=== PATIENT | male | born 1950 | race Two or more races ===

== ENCOUNTER 2017-01-01 17:04 | Emergency (ER) | payer MEDICAID ==
[~2017-01-01] VITALS: Ht 165.1 cm; Wt 72.6 kg
[2017-01-01 17:43] LABS: Urine Bilirubin Negative (Negative); Urine Blood TRACE /uL (Negative); Urine Color Yellow (Yellow); Urine Glucose Normal (Normal); Urine Ketone Negative (Negative); Urine Nitrite Negative (Negative); Urine RBC 12 /hpf (0 - 3)
[2017-01-01 17:50] LABS: Basophils # (auto) 0 uL; Basophils % (auto) 0.3 % (0.0-2.0); DEFINITIVE VIEW TRANSMISSION; Eosinophils # (auto) 0.1 uL; Hematocrit 46.2 % (41.0-53.0); Hemoglobin 14.9 g/dL (13.5-17.5); Lymphocytes # (auto) 1.8 uL; Lymphocytes % (auto) 13.8 % (10.0-50.0); Mean Corpuscular Hemoglobin 24.3 pg (28.0-32.0); Mean Corpuscular Hgb Conc. 32.2 g/dL (32.0-36.0); Mean Corpuscular Volume 75.4 fL (80.0-100.0); Monocytes # (auto) 0.7 uL; Monocytes % (auto) 5.5 % (0.0-12.0); Neutrophils # (auto) 10.6 uL; Neutrophils % (auto) 79.4 % (37.0-80.0); Platelet Count (auto) 222 10^3/uL (140-450); SUSPECT VIEW TRANSMISSION; White Blood Cell 13.4 10^3/uL (4.4-10.8)
[2017-01-01 17:58] LABS: Red Cell Distribution Width 25.9 % (11.6-16.0)
[2017-01-01 17:59] LABS: Hypochromia Moderate; Microcytosis Moderate
[2017-01-01 18:00] LABS: Anisocytosis Moderate; Platelet Estimate Adequate
[2017-01-01 18:16] LABS: Albumin 4.3 g/dL (3.4-5.0); Alkaline Phosphatase 75 U/L (45-117); Anion Gap 12 (5-15); Aspartate Aminotransferase 23 U/L (15-37); BUN/Creatinine Ratio 7.7; Bilirubin, Total 2.5 mg/dL (0.2-1.0); Blood Urea Nitrogen 7 mg/dL (7-18); Calcium 8.8 mg/dL (8.5-10.1); Carbon Dioxide 32 mmol/L (21-32); Chloride 94 mmol/L (98-107); GFR African American 107 mL/min; GFR Non-African American 88 mL/min; Glucose 121 mg/dL (74-106); Magnesium 2.5 mg/dL (1.6-2.6); Potassium 3.7 mmol/L (3.5-5.1); Sodium 138 mmol/L (136-145)
[2017-01-01] MEDS ORDERED: SODIUM CHLORIDE 0.9% 2,000 ML IV ONE (19:45)
[2017-01-01] MEDS ORDERED: ONDANSETRON HCL 4 MG/2 ML VIAL IV ONE (19:45)
[2017-01-01 21:18] VITALS: BP 139/81
== END 2017-01-01 21:24 | disposition home or self-care (01) ==
LOC: ER 17:04
DX: T62.8X1A Toxic effect of other specified noxious substances eaten as food, accidental (unintentional), initial encounter (principal); N39.0 Urinary tract infection, site not specified; I10 Essential (primary) hypertension; Y92.89 Other specified places as the place of occurrence of the external cause
CPT/HCPCS: 36415; 80053; 81001; 83735; 84484; 85025; 93005; 96361; 96374; 99285; J2405; J7030

== ENCOUNTER 2018-07-29 08:49 | Emergency (ER) | payer MEDICAID ==
[~2018-07-29] VITALS: Ht 165.1 cm; Wt 79.4 kg
[2018-07-29 09:21] LABS: Urine Bacteria MANY /hpf (None Seen); Urine Blood 1+ /uL (Negative); Urine Mucus FEW (None Seen); Urine Specific Gravity 1.014 (1.001-1.035); Urine WBC 1263 /hpf (0 - 3); Urine WBC Clumps PRESENT /hpf (None Seen)
[2018-07-29 09:27] LABS: Basophils # (auto) 0 uL; Eosinophils # (auto) 0.1 uL; Lymphocytes # (auto) 1.1 uL
[2018-07-29 09:29] LABS: Basophils % (auto) 0.2 % (0.0-2.0); Eosinophils % (auto) 0.6 % (0.0-7.0); Hematocrit 34.6 % (41.0-53.0); Hemoglobin 11.5 g/dL (13.5-17.5); Lymphocytes % (auto) 12.6 % (10.0-50.0); Mean Corpuscular Hemoglobin 23.8 pg (28.0-32.0); Mean Corpuscular Hgb Conc. 33.3 g/dL (32.0-36.0); Mean Corpuscular Volume 71.4 fL (80.0-100.0); Monocytes % (auto) 11.3 % (0.0-12.0); Neutrophils # (auto) 6.6 uL; Neutrophils % (auto) 75.3 % (37.0-80.0); Nucleated Red Blood Cells % 0.1 %; Platelet Count (auto) 137 10^3/uL (140-450); Red Blood Cells 4.84 10^6/uL (4.5-5.90); White Blood Cell 8.7 10^3/uL (4.4-10.8)
[2018-07-29 09:32] LABS: Red Cell Distribution Width 23.7 % (11.8-14.3)
[2018-07-29 09:58] LABS: Albumin 3.4 g/dL (3.4-5.0); BUN/Creatinine Ratio 12.1; Potassium 3.5 mmol/L (3.5-5.1)
[2018-07-29 10:01] LABS: Bilirubin, Total 1.8 mg/dL (0.2-1.0); Total Protein 7.4 g/dL (6.4-8.2)
[2018-07-29] MEDS ORDERED: cefTRIAXone 1GM/50ML D5W 50 ML IV ONE (11:45)
[2018-07-29 12:28] VITALS: BP 128/68
== END 2018-07-29 12:20 | disposition home or self-care (01) ==
LOC: ER 08:53
DX: N39.0 Urinary tract infection, site not specified (principal); I10 Essential (primary) hypertension; Z87.442 Personal history of urinary calculi
CPT/HCPCS: 36415; 80053; 81001; 85025; 94761; 96365; 99283; J0696

== ENCOUNTER 2024-04-02 20:25 | Emergency (ER) | payer BC, OTHER ==
[~2024-04-02] VITALS: Ht 167.6 cm; Wt 82.7 kg
[2024-04-02 21:18] LABS: Basophils # (auto) 0 10 ^3/uL (0-0.2); Eosinophils # (auto) 0.3 10 ^3/uL (0-0.8); Hemoglobin 7.8 g/dL (13.5-17.5); Neutrophils # (auto) 3.3 10 ^3/uL (1.6-8.6); Nucleated Red Blood Cells % 0.2 %; White Blood Cell 6.2 10^3/uL (4.4-10.8)
[2024-04-02 21:20] LABS: Basophils % (auto) 0.3 % (0.0-2.0); Eosinophils % (auto) 4.6 % (0.0-7.0); Hematocrit 28.4 % (41.0-53.0); Lymphocytes # (auto) 2.1 10 ^3/uL (0.4-5.4); Mean Corpuscular Hemoglobin 13.9 pg (28.0-32.0); Mean Corpuscular Hgb Conc. 27.5 g/dL (32.0-36.0); Mean Corpuscular Volume 50.6 fL (80.0-100.0); Monocytes # (auto) 0.4 10 ^3/uL (0-1.3); Monocytes % (auto) 7.2 % (0.0-12.0); Neutrophils % (auto) 53.9 % (37.0-80.0); Red Blood Cells 5.62 10^6/uL (4.5-5.90); Red Cell Distribution Width 23.2 % (11.8-14.3)
[2024-04-02 21:42] LABS: Albumin 4.4 g/dL (3.2-4.8); Alkaline Phosphatase 65 U/L (46-116); Anion Gap 7 (5-15); Aspartate Aminotransferase < 8 U/L (13-40); BUN/Creatinine Ratio 15.2 (10.0-20.0); Bilirubin, Total 1.1 mg/dL (0.2-1.0); Blood Urea Nitrogen 12 mg/dL (9-23); Carbon Dioxide 26 mmol/L (20-30); Chloride 106 mmol/L (98-107); Glucose 102 mg/dL (74-106); Sodium 139 mmol/L (136-145); Total Protein 6.9 g/dL (5.7-8.2)
[2024-04-02 21:45] LABS: Alanine Aminotransferase < 9 U/L (7-40)
[2024-04-02] MEDS ORDERED: FUROSEMIDE 20 MG/2 ML VIAL IV ONE (22:30)
[2024-04-02 22:58] LABS: Anisocytosis Moderate; Hypochromia Marked; Ovalocytes MODERATE; Platelet Estimate Decreased
[2024-04-02 22:59] LABS: Tear Drop Cells FEW
[2024-04-02] MEDS ORDERED: FURO1TAB33 PO (23:18)
[2024-04-02] MEDS ORDERED: FUROSEMIDE 40 MG/4 ML VIAL IV ONE (23:30)
[2024-04-03] MEDS: FUROSEMIDE 20 MG TAB PO ONE
[2024-04-03 00:40] VITALS: BP 122/56; PULSE 70; RESP 16; TEMP 98.4; O2SAT 95
== END 2024-04-02 23:20 | disposition home or self-care (01) ==
LOC: ER 20:25
DX: D64.9 Anemia, unspecified (principal); R60.0 Localized edema; G89.29 Other chronic pain; M25.512 Pain in left shoulder; I10 Essential (primary) hypertension; Z87.442 Personal history of urinary calculi
CPT/HCPCS: 36415; 71045; 80053; 83880; 84484; 85025; 93005; 93970

== ENCOUNTER 2025-03-14 13:18 | Emergency (ER) | payer BC, MEDICAID ==
[~2025-03-14] VITALS: Ht 165.1 cm; Wt 82.0 kg
[~2025-03-14 13:18] MED LIST: FURO1TAB33 PO
--- NOTE | 2025-03-14 13:46 | ED.PDOC ---
GI ASSESSMENT HPI Comments This is a 74 year old male BIB grandson presenting to the ED with chief complaint of nausea/vomiting. Grandefe reports that the patient was having ore chronic pain last night due to residual effect from shingles, so he had taken a dose of Oxycodone (which is his 's), Advil, Tylenol, and Gabapentin. Mami relays that after this, the patient has since then been experiencing episode of nausea and vomiting. Patient denies any abdominal pain chest pain, SOB, dizziness, or hematemesis. Time Seen by MD: 13:41 Primary Care Provider: NONE Reviewed Notes: Nurses Notes, Medications, Allergies Allergies: Coded Allergies: NO KNOWN ALLERGIES (Unverified , 04/14/16) Home Meds Active Scripts Furosemide (Lasix) 20 Mg Tb, 1 TAB PO DAILY for 30 Days, #30 TAB 1 Refill Prov:AKIN PATEL MD 04/02/24 Information Source: Patient, Relative (GrandChild) Mode of Arrival: Wheelchair Timing: Hours Duration: Since onset Prehospital treatment: None Vomitus: Watery Stool: Normal Severity: Moderate Recent: None Recent Hx of: None Pain Location: None Modifying Factors: Nothing Associated sign and symptoms: Nausea, Vomiting Past Medical History PAST MEDICAL HISTORY: HTN, Kidney Stones Past Medical History (Other): Chronic left shoulder pain Surgical History: Hernia Repair Surgical History (Other): Abdominal tumor removal Family History Family History: Reviewed,noncontributory to illness Social History Smoker: Non-Smoker Alcohol: Denies ETOH Use Drugs: Denies Drug Use Lives In: Home Constitutional: denies: chills, diaphoresis, fatigue, fever, malaise, sweats, weakness, others EENTM: denies: blurred vision, double vision, ear bleeding, ear discharge, ear drainage, ear pain, ear ringing, eye pain, eye redness, hearing loss, mouth pain, mouth swelling, nasal discharge, nose bleeding, nose congestion, nose pain, photophobia, tearing, throat pain, throat swelling, voice changes, others Respiratory: denies: cough, hemoptysis, orthopnea, SOB at rest, shortness of breath, SOB with excertion, stridor, wheezing, others Cardiovascular: denies: chest pain, dizzy spells, diaphoresis, Dyspnea on exertion, edema, irregular heart beat, left arm pain, lightheadedness, pa lpitations, PND, syncope, others Gastrointestinal: reports: nausea, vomiting; denies: abdomen distended, abdominal pain, blood streaked bowels, constipated, diarrhea, dysphagia, difficulty swallowing, hematemesis, melena, poor appetite, poor fluid intake, rectal bleeding, rectal pain, others Genitourinary: denies: burning, dysuria, flank pain, frequency, hematuria, incontinence, penile discharge, penile sore, pain, testicle pain, testicle swelling, urgency, others Neurological: denies: dizziness, fainting, headache, left sided numbness, left sided weakness, numbness, paresthesia, pre-existing deficit, right sided numbness, right sided weakness, seizure, speech problems, tingling, tremors, weakness, others Musculoskeletal: denies: back pain, gout, joint pain, joint swelling, muscle pain, muscle stiffness, neck pain, others Integumetry: denies: bruises, change in color, change in hair/nails, dryness, laceration, lesions, lumps, rash, wounds, others Allergic/Immunocompromised: denies: Difficulty Healing, Frequent Infections, Hives, Itching, others Hematologic/Lymphatic: denies: anemia, blood clots, easy bleeding, easy bruising, swollen glands, others Endocrine: denies: excessive hunger, excessive sweating, excessive thirst, excessive urination, flushing, intolerance to cold, intolerance to heat, unex plained weight gain, unexplained weight loss, others Psychiatric: denies: anxiety, bipolar disorder, depression, hopeless, panic disorder, schizophrenia, sleepless, suicidal, others All Other Systems: Reviewed and Negative Physical Exam General Appearance: No Apparent Distress, Normal HEENT: Normal ENT Inspection, Pharynx Normal, TMs Normal Neck: Full Range of Motion, Non-Tender, Normal, Normal Inspection Respiratory: Chest Non-Tender, Lungs Clear, No Accessory Muscle Use, No Respiratory Distress, Normal Breath Sounds Cardiovascular: No Edema, No JVD, No Murmur, No Gallop, Normal Peripheral Puls es, Regular Rate/Rhythm Breast Exam: Deferred Gastrointestinal: No Organomegaly, Non Tender, No Pulsatile Mass, Normal Bowel Sounds, Soft Genitalia: Deferred Pelvic: Deferred Rectal: Deferred Extremities: No calf tenderness, Normal capillary refill, Normal inspection, Normal range of motion, Non-tender, No pedal edema Musculoskeletal : Apperance: Normal Neurologic: Alert, manager oncology II-XII nml as Tested, No Motor Deficits, Normal Affect, Normal Mood, No Sensory Deficits, Other (Resting tremors) Cerebellar Function: Normal Reflexes: Normal Skin: Dry, Normal Color, Warm Lymphatic: No Adenopathy Was a procedure done? Was a procedure done?: No GI differential Dx Differential Diagnosis: Appendicitis, Aortic dissection, Bowel Obstruction, Cholangitis, Cholecystitis, Constipation, Esophagitis, Gastritis/PUD, Gastroen teritis, Hernia, Hepatitis, Pancreatitis, UTI, Urolithiasis, Electrolyte Imbalance, Food Poisoning, Bacterial, Parasitic, Viral, Impaction, Mass, Stress Ulcer, Kidney Stone X-Ray, Labs, Meds, VS Vital Signs Date Time Temp Pulse Resp B/P (MAP) Pulse Ox O2 Delivery O2 Flow Rate FiO2 03/14/25 14:40 86 16 96 Room Air* 0 21 03/14/25 14:39 97.8 86 16 160/67 (98) 96 97.8 03/14/25 14:15 98.0 83 17 144/86 (105) 97 98.0 Lab Test 03/14/25 15:24 03/14/25 14:40 03/14/25 13:50 Range/Units Urine Color Colorless Yellow Urine Clarity Clear Clear Urine pH 7.0 5.0-9.0 Urine Specific [place] 1.007 1.001-1.035 Urine Protein Negative Negative Urine Ketones 1+ H Negative Urine Blood Negative Negative /uL Urine Nitrite Negative Negative Urine Bilirubin Negative Negative Urine Urobilinogen Normal Negative mg/dL Urine Leukocyte Esterase Negative Negative /uL Urine RBC 1 0 - 3 /hpf Urine Microscopic WBC 2 0-3 /HPF Urine Squamous Epithelial Cells None seen <5 /hpf Urine Bacteria None seen None Seen /hpf Urine Glucose Normal Normal mg/dL Troponin I High Sensitivity 4 4 </=54 ng/L White Blood Count 8.1 4.4-10.8 10^3/uL Red Blood Count 6.62 H 4.5-5.90 10^6/uL Hemoglobin 9.7 L 13.5-17.5 g/dL Hematocrit 34.4 L 41.0-53.0 % Mean Corpuscular Volume 51.9 L 80.0-100.0 fL Mean Corpuscular Hemoglobin 14.7 L 28.0-32.0 pg Mean Corpuscular Hemoglobin Concent 28.3 L 32.0-36.0 g/dL Red Cell Distribution Width 23.1 H 11.8-14.3 % Platelet Count 113 L 140-450 10^3/uL Mean Platelet Volume 10.7 6.9-10.8 fL Neutrophils (%) (Auto) 83.0 H 37.0-80.0 % Lymphocytes (%) (Auto) 11.8 10.0-50.0 % Monocytes (%) (Auto) 3.5 0.0-12.0 % Eosinophils (%) (Auto) 0.8 0.0-7.0 % Basophils (%) (Auto) 0.9 0.0-2.0 % Neutrophils # (Auto) 6.7 1.6-8.6 10 ^3/uL Lymphocytes # (Auto) 0.9 0.4-5.4 10 ^3/uL Monocytes # (Auto) 0.3 0-1.3 10 ^3/uL Eosinophils # (Auto) 0.1 0-0.8 10 ^3/uL Basophils # (Auto) 0.1 0-0.2 10 ^3/uL Nucleated Red Blood Cells 0.2 % Platelet Estimate Adequate Hypochromasia (manual) Moderate Anisocytosis (manual) Slight Microcytosis Moderate Ovalocytes Few Sodium Level 137 136-145 mmol/L Potassium Level 3.9 3.5-5.1 mmol/L Chloride Level 102 98-107 mmol/L Carbon Dioxide Level 23 20-31 mmol/L Anion Gap 12 5-15 Blood Urea Nitrogen 12 9-23 mg/dL Creatinine 0.86 0.700-1.30 mg/dL Glomerular Filtration Rate Calc 90 >90 mL/min BUN/Creatinine Ratio 14.0 10.0-20.0 Serum Glucose 120 H 74-106 mg/dL Calcium Level 9.5 8.7-10.4 mg/dL Total Bilirubin 1.7 H 0.2-1.0 mg/dL Aspartate Amino Transferase (AST) 34 13-40 U/L Alanine Aminotransferase (ALT) 10 7-40 U/L Alkaline Phosphatase 72 46-116 U/L Total Protein 7.5 5.7-8.2 g/dL Albumin 4.9 H 3.2-4.8 g/dL Lipase 38 12-53 U/L Current Medications Medications (Trade) Dose Ordered Sig/Tamir Route Start Time Stop Time Status Last Admin Ondansetron HCl (Zofran) 4 mg ONCE ONCE IV 03/14/25 13:45 03/14/25 13:46 DC 03/14/25 14:45 Sodium Chloride 1,000 ml @ 200 mls/hr Q5H ONCE IV 03/14/25 13:45 03/14/25 18:44 03/14/25 14:44 CT Abd/Pel: FINDINGS: Motion artifact limits evaluation. Lung bases: Atelectasis in the lung bases. Respiratory motion artifact limits evaluation. Small pericardial effusion partially visualized. Large hiatal hernia Liver: Hepatic cysts, with the largest in the right hepatic lobe measuring up to 4.4 cm. Biliary: Numerous calcified gallstones in the gallbladder. Mild gallbladder distention. No biliary ductal dilatation. Spleen: Spleen is enlarged, measuring up to 16.1 cm in greatest dimension. Pancreas: Grossly unremarkable in its noncontrast enhanced appearance. Adrenal glands: Unremarkable. No mass. Kidneys: No hydronephrosis. No renal or ureteral calculi. Aorta/Vascular: Dense atherosclerotic calcification. No abdominal aortic aneurysm. Retroperitoneum: No mass or lymphadenopathy. Bowel/mesentery: No small bowel obstruction. No free air or free fluid. Appendix is visualized and appears unremarkable. Pelvic organs: Markedly enlarged prostate with impression on the bladder base. Bladder: [id number] circumferential thickening of the bladder wall. Abdominal wall: No mass or hernia. Bones: No acute fracture or suspicious intraosseous lesion. IMPRESSION: 1. Motion limited study. 2. Large hiatal hernia. 3. Distended gallbladder with cholelithiasis. 4. Splenomegaly. 5. Prostatomegaly. 6. Circumferential thickening of the bladder wall is nonspecific. Correlate clinically to exclude cystitis. 7. Small pericardial effusion. 8. Additional findings as described above. Chest XR: FINDINGS: Lines and Tubes: None Lungs: Clear Pleura: Blunting both costophrenic angle compatible small minimal pleural effusions No pneumothorax. Cardiomediastinal contours: Large probable hiatal hernia Bones: Unremarkable IMPRESSION: 1. Probable large hiatal hernia Small bilateral pleural effusions Heart size upper limits of normal Images Reviewed?: Images reviewed and evaluated by me Time of 1ST Reevaluation: 14:41 Reevaluation 1ST: Unchanged Time of 2ND Reevaluation: 15:35 Reevaluation 2ND: Improved Consultation: Other (Dr Lewis) Patient Education/Counseling: Diagnosis, Treatment, Prognosis, Need For Follow Up Family Education/Counseling: Diagnosis, Treatment Comments pt has cholelithiasis and the back pain, that he ascribed to shingles, may be due to biliary colic. his LFTs are normal., he has other nonspecific findings, including HH, which i feel are incidental findings. he will be admitted for cholelithiasis Additional Information Reviewed patient's previous visit(s): 04/02/24 for leg swelling The following tests were ordered, and results were reviewed by me: Additional information was gathered from interviewing the following independent historian: Mami I reviewed and agreed with the following test results read by other provider: I discussed treatments and results with medical personnel and: Patient and grandson Comprehensive systems review obtained and negative except for what is stated in the HPI. SEPSIS Sepsis Screen Physician Orders Ct Ab Pel Wo Con-No Oral Or Iv (03/14/25 13:40) Electrocardigram (03/14/25 13:40) Chest Portable (03/14/25 13:40) Electrocardigram (03/14/25 14:40) Electrocardigram (03/14/25 16:40) Troponin-I Hs (03/14/25 16:40) Sodium Chloride 0.9% (03/14/25 13:45) Vital Signs Date Time Temp Pulse Resp B/P (MAP) Pulse Ox O2 Delivery O2 Flow Rate FiO2 03/14/25 14:40 86 16 96 Room Air* 0 21 03/14/25 14:39 97.8 86 16 160/67 (98) 96 97.8 03/14/25 14:15 98.0 83 17 144/86 (105) 97 98.0 Laboratory Tests Test 03/14/25 13:50 White Blood Count 8.1 10^3/uL (4.4-10.8) Medications Medications Dose Ordered Sig/Tamir Route Start Time Stop Time Status Last Admin Dose Admin Ondansetron HCl 4 mg ONCE ONCE IV 03/14/25 13:45 03/14/25 13:46 DC 03/14/25 14:45 Sodium Chloride 1,000 ml @ 200 mls/hr Q5H ONCE IV 03/14/25 13:45 03/14/25 18:44 03/14/25 14:44 Departure 1 Departure Time of Disposition: 15:37 Impression: Primary Impression: Cholelithiasis Qualified Codes: K80.20 - Calculus of gallbladder without cholecystitis without obstruction Additional Impressions: Hiatal hernia Biliary colic Disposition: ADMITTED INPATIENT Admit to: Med Surg Condition: Stable Discharged With: Self, Relative Critical Care Note Critical Care Time?: Yes (55 min-critical care time only) Critical care comment: Due to concerns for patients condition deteriorating, the care required my highest level of attention and readiness to intervene. I assessed the patient, reviewed the medical records, ordered the appropriate tests and treatments, then reassessed for results and responsiveness. I communicated with medical personnel and consultants and formulated a plan of care. Total critical care time excludes any procedures Stability Stability form required: No Heart Score Heart Score: Heart Score Response (Comments) Value History N/A 0 EKG N/A 0 Age N/A 0 Risk Factors N/A 0 Troponin N/A 0 Total 0 I personally scribed for LAUREL DANIELS MD ([email or web address]) on 03/14/25 at 13:46. Electronically submitted by Himanshu Hi ([email or web address]). I personally scribed for LAUREL DANIELS MD ([email or web address]) on 03/14/25 at 14:46. Electronically submitted by Himanshu Hi ([email or web address]). I personally scribed for LAUREL DANIELS MD ([email or web address]) on 03/14/25 at 14:46. Electronically submitted by Himanshu Hi ([email or web address]). LAUREL DANIELS MD Mar 14, 2025 13:46
[2025-03-14 14:11] LABS: Hematocrit 34.4 % (41.0-53.0); Hemoglobin 9.7 g/dL (13.5-17.5)
[2025-03-14 14:13] LABS: Mean Corpuscular Hemoglobin 14.7 pg (28.0-32.0); Mean Corpuscular Volume 51.9 fL (80.0-100.0); Nucleated Red Blood Cells % 0.2 %
--- NOTE | 2025-03-14 14:25 | DVH ---
CLINICAL INFORMATION: Nausea and vomiting. TECHNIQUE: Axial CT images of the abdomen and pelvis were obtained without IV contrast. Coronal and s agittal reformatted images were obtained, reviewed, and stored. Evaluation of the parenchymal organs is limited without IV contrast. Evaluation of the bowel and mesentery is limited without oral contras t. All CT scans at this medical facility are performed using dose modulation techniques as appropriat e to a performed exam including the following: Automated exposure control was utilized; adjustment of the MA and/or KV according to patient size; and use of iterative reconstruction technique. CTDIvol = 15.24 mGy DLP = 735.53 mGy-cm COMPARISON: None FINDINGS: Motion artifact limits evaluation. Lung bases: Atelectasis in the lung bases. Respiratory motion artifact limits evaluation. Small peric ardial effusion partially visualized. Large hiatal hernia Liver: Hepatic cysts, with the largest in the right hepatic lobe measuring up to 4.4 cm. Biliary: Numerous calcified gallstones in the gallbladder. Mild gallbladder distention. No biliary d uctal dilatation. Spleen: Spleen is enlarged, measuring up to 16.1 cm in greatest dimension. Pancreas: Grossly unremarkable in its noncontrast enhanced appearance. Adrenal glands: Unremarkable. No mass. Kidneys: No hydronephrosis. No renal or ureteral calculi. Aorta/Vascular: Dense atherosclerotic calcification. No abdominal aortic aneurysm. Retroperitoneum: No mass or lymphadenopathy. Bowel/mesentery: No small bowel obstruction. No free air or free fluid. Appendix is visualized and ap pears unremarkable. Pelvic organs: Markedly enlarged prostate with impression on the bladder base. Bladder: [id number] circumferential thickening of the bladder wall. Abdominal wall: No mass or hernia. Bones: No acute fracture or suspicious intraosseous lesion. IMPRESSION: 1. Motion limited study. 2. Large hiatal hernia. 3. Distended gallbladder with cholelithiasis. 4. Splenomegaly. 5. Prostatomegaly. 6. Circumferential thickening of the bladder wall is nonspecific. Correlate clinically to exclude cy stitis. 7. Small pericardial effusion. 8. Additional findings as described above.
[2025-03-14 14:27] LABS: Alanine Aminotransferase 10 U/L (7-40); Alkaline Phosphatase 72 U/L (46-116); Anion Gap 12 (5-15); BUN/Creatinine Ratio 14.0 (10.0-20.0); Blood Urea Nitrogen 12 mg/dL (9-23); Calcium 9.5 mg/dL (8.7-10.4); Carbon Dioxide 23 mmol/L (20-31); Chloride 102 mmol/L (98-107); Potassium 3.9 mmol/L (3.5-5.1); Sodium 137 mmol/L (136-145); Total Protein 7.5 g/dL (5.7-8.2)
[2025-03-14 14:29] LABS: Albumin 4.9 g/dL (3.2-4.8); Bilirubin, Total 1.7 mg/dL (0.2-1.0); Glucose 120 mg/dL (74-106)
--- NOTE | 2025-03-14 14:39 | DVH ---
CHEST RADIOGRAPH Indication: NAUSEA VOMITING Technique: Single frontal view of the chest was obtained COMPARISON: XY CHEST PORTABLE on DOS: 04/02/24 FINDINGS: Lines and Tubes: None Lungs: Clear Pleura: Blunting both costophrenic angle compatible small minimal pleural effusions No pneumothorax. Cardiomediastinal contours: Large probable hiatal hernia Bones: Unremarkable IMPRESSION: 1. Probable large hiatal hernia Small bilateral pleural effusions Heart size upper limits of normal
[2025-03-14 14:40] VITALS: PULSE 86; RESP 16; O2SAT 96
[2025-03-14 14:40] LABS: Anisocytosis Slight; Lipase 38 U/L (12-53); Ovalocytes FEW
[2025-03-14] MEDS: SODIUM CHLORIDE 0.9% 1,000 ML IV ONE (14:44)
[2025-03-14] MEDS: ONDANSETRON HCL 4 MG/2 ML VIAL IV ONE ×2 (14:45→16:13)
[2025-03-14 15:42] LABS: Urine Protein, UAD Negative (Negative)
[2025-03-14] MEDS ORDERED: ZOFR4T PO (15:57)
[2025-03-14] MEDS ORDERED: AUG875T PO (16:02)
[2025-03-14] MEDS: fentaNYL CITRATE 100 MCG/2 ML VL IV ONE (16:13)
[2025-03-14 16:18] VITALS: BP 113/76; PULSE 83; RESP 16; TEMP 97.6; O2SAT 96
--- NOTE | 2025-03-14 16:39 | DVHDS2 ---
New Physician D'charge PN Admitting Diagnosis Admitting Diagnosis nausea Discharge Diagnosis cholelithiasis Operations or Procedures none Reason(s) For Hospitalization Surgery Hospital Course 74 M who comes to ER c/o nausea. He is accompanied by the son. He states he has had on and off nausea since yesterday. On ER work up he had a nml WBC of 8k and chemistry panel was nml with nml LFTs. His cardiac markers were all negative. He has a CT abdomen done and it revealed cholelithiasis but no evidence of ch olecystitis. He was given IV hydration and antiemetics. Hemodynamically his BP was nml, HR was in the 70s, he was afebrile at 98F and respirations were even and unlabored. I discussed the findings with the son and patient regarding the gallstones and likely his nausea being attributable to that. I recommended low fat diet and prescribed PO antiemetics zofran for home PRN. They would like to try conservative management at this time however given he does have gallstones and if his symptoms persist or worsen in the future he may need to have cholecystectomy at that time but there was no evidence of cholecystitis on CT imaging during this ER visit. He will be discharged home and [facility] to arrange outpt PCP and general surgery follow up. Scripts sent to the patients pharmacy on file and they have been instructed to return to ER or call 911 should his symptoms worsen. Treatment Plan Discharge Condition of Discharge Good Disposition Home Discharge Instructions Diet: Cardiac 2g Na,low cholest Activity: No Restrictions, As Tolerated Medications: see med sheet Follow Up Care Follow Up/Referral: pcp gen surgery Discharge Statement: "Patient was advised to return to the ER or call 911 if any headaches, dizziness, shortness of breath, chest pain, abdominal pain, bleeding, fevers, or worsening of medical condition. Patient was counseled about treatment plan, medications, possible side effects, patientverbalized understanding. All questions were answered to the best of my ability. This discharge took greater then 30 minutes in planning, reviewing documen tation, counseling the patient, and discussing with other team members." BRENDA CHAVEZ MD Mar 14, 2025 16:39
== END 2025-03-14 16:24 | disposition home or self-care (01) ==
LOC: ER 13:18
DX: K80.20 Calculus of gallbladder without cholecystitis without obstruction (principal); K44.9 Diaphragmatic hernia without obstruction or gangrene; K80.50 Calculus of bile duct without cholangitis or cholecystitis without obstruction; I10 Essential (primary) hypertension; G89.29 Other chronic pain; M25.512 Pain in left shoulder; Z79.899 Other long term (current) drug therapy; Z98.890 Other specified postprocedural states
CPT/HCPCS: 36415; 71045; 74176; 80053; 81001; 83690; 84484; 85025; 96361; 96374; 99285; J2405; J7030

== ENCOUNTER 2025-03-16 11:05 | Inpatient (IN) | payer BC, MEDICAID ==
[~2025-03-16] VITALS: Ht 165.1 cm; Wt 79.3 kg
[~2025-03-16 11:05] MED LIST changes: +AUG875T PO; +ZOFR4T PO
--- NOTE | 2025-03-16 11:47 | ED.PDOC ---
History of Present Illness HPI Comments 74 y.o male presents to the ED for a chief complaint of palpitations associated with nausea that started 3 days ago. Patient reports inability to vomit causing discomfort to sleep. Patient reports being seen at the ED here 2 days ago for abdominal pain, had a CT scan done showing gallbladder issues and was discharged home but since has not fully recovered. Patient denies any chest pain, fever, chills, leg swelling,, diarrhea. Chief Complaint: Abdominal Pain Time Seen by MD: 11:30 Primary Care Provider: UNKNOWN Reviewed Notes: Nurses Notes, Medications, Allergies Allergies: Coded Allergies: NO KNOWN ALLERGIES (Unverified , 04/14/16) Home Meds Active Scripts Amoxicillin & Pot Clavulanate (AUGMENTIN TABLET) 875 Mg Tb, 875 MG PO BID for 7 Days, #14 TAB Prov:BRENDA CHAVEZ MD 03/14/25 Ondansetron Odt 4MG Tab (ZOFRAN PO) 4 Mg Tb, 4 MG PO TIDPRN PRN, #40 TAB ODT TAB-DISSOLVE IN MOUTH, THEN SWALLOW Prov:BRENDA CHAVEZ MD 03/14/25 Furosemide (Lasix) 20 Mg Tb, 1 TAB PO DAILY for 30 Days, #30 TAB 1 Refill Prov:AKIN PATEL MD 04/02/24 Information Source: Patient Mode of Arrival: Ambulatory Severity: Moderate Timing: Days (3) Duration: Since onset Prehospital treatment: None Associated signs and symptoms Palpitations and abdominal pain Past Medical History PAST MEDICAL HISTORY: HTN, Kidney Stones Surgical History: Hernia Repair Family History Family History: Reviewed,noncontributory to illness Social History Smoker: Non-Smoker Alcohol: Denies ETOH Use Drugs: Denies Drug Use Lives In: Home Constitutional: denies: chills, diaphoresis, fatigue, fever, malaise, sweats, weakness, others EENTM: denies: blurred vision, double vision, ear bleeding, ear discharge, ear drainage, ear pain, ear ringing, eye pain, eye redness, hearing loss, mouth pain, mouth swelling, nasal discharge, nose bleeding, nose congestion, nose pain, photophobia, tearing, throat pain, throat swelling, voice changes, others Respiratory: denies: cough, hemoptysis, orthopnea, SOB at rest, shortness of breath, SOB with excertion, stridor, wheezing, others Cardiovascular: reports: palpitations; denies: chest pain, dizzy spells, diaphoresis, Dyspnea on exertion, edema, irregular heart beat, left arm pain, lightheadedness, PND, syncope, others Gastrointestinal: reports: nausea; denies: abdomen distended, abdominal pain, blood streaked bowels, constipated, diarrhea, dysphagia, difficulty swallowing, hematemesis, melena, poor appetite, poor fluid intake, rectal bleeding, rectal pain, vomiting, others Genitourinary: denies: burning, dysuria, flank pain, frequency, hematuria, incontinence, penile discharge, penile sore, pain, testicle pain, testicle swelling, urgency, others Neurological: denies: dizziness, fainting, headache, left sided numbness, left sided weakness, numbness, paresthesia, pre-existing deficit, right sided numbness, right sided weakness, seizure, speech problems, tingling, tremors, weakness, others Musculoskeletal: denies: back pain, gout, joint pain, joint swelling, muscle pain, muscle stiffness, neck pain, others Integumetry: denies: bruises, change in color, change in hair/nails, dryness, laceration, lesions, lumps, rash, wounds, others Allergic/Immunocompromised: denies: Difficulty Healing, Frequent Infections, Hives, Itching, others Hematologic/Lymphatic: denies: anemia, blood clots, easy bleeding, easy bruising, swollen glands, others Endocrine: denies: excessive hunger, excessive sweating, excessive thirst, excessive urination, flushing, intolerance to cold, intolerance to heat, unexplained weight gain, unexplained weight loss, others Psychiatric: denies: anxiety, bipolar disorder, depression, hopeless, panic disorder, schizophrenia, sleepless, suicidal, others All Other Systems: Reviewed and Negative Physical Exam General Appearance: Moderate Distress HEENT: Normal ENT Inspection, Pharynx Normal, TMs Normal Neck: Full Range of Motion, Non-Tender, Normal, Normal Inspection Respiratory: Chest Non-Tender, Lungs Clear, No Accessory Muscle Use, No Respiratory Distress, Normal Breath Sounds Cardiovascular: No Edema, No JVD, No Murmur, No Gallop, Normal Peripheral Pulses, Regular Rate/Rhythm Breast Exam: Deferred Gastrointestinal: Epigastric, No Organomegaly, No Pulsatile Mass, Normal Bowel Sounds, Soft, Tenderness Genitalia: Deferred Pelvic: Deferred Rectal: Deferred Extremities: No calf tenderness, Normal capillary refill, No pedal edema Musculoskeletal : Apperance: Normal Neurologic: Alert, semiconductor engineer II-XII nml as Tested, No Motor Deficits, Normal Affect, Normal Mood, No Sensory Deficits Cerebellar Function: Normal Reflexes: Normal Skin: Dry, Normal Color, Warm Lymphatic: No Adenopathy Was a procedure done? Was a procedure done?: No Differential Dx Considerations may include: Viral syndrome, Cholelithiasis, Dehydration, Anxiety, Electrolyte imbalance. X-Ray, Labs, Meds, VS Vital Signs Date Time Temp Pulse Resp B/P (MAP) Pulse Ox O2 Delivery O2 Flow Rate FiO2 03/16/25 11:27 98.1 78 21 143/83 (103) 93 98.1 Lab Test 03/16/25 11:49 Range/Units White Blood Count 8.1 4.4-10.8 10^3/uL Red Blood Count 6.27 H 4.5-5.90 10^6/uL Hemoglobin 9.1 L 13.5-17.5 g/dL Hematocrit 32.3 L 41.0-53.0 % Mean Corpuscular Volume 51.5 L 80.0-100.0 fL Mean Corpuscular Hemoglobin 14.6 L 28.0-32.0 pg Mean Corpuscular Hemoglobin Concent 28.3 L 32.0-36.0 g/dL Red Cell Distribution Width 23.2 H 11.8-14.3 % Platelet Count 105 L 140-450 10^3/uL Mean Platelet Volume 9.9 6.9-10.8 fL Neutrophils (%) (Auto) 77.4 37.0-80.0 % Lymphocytes (%) (Auto) 15.9 10.0-50.0 % Monocytes (%) (Auto) 5.5 0.0-12.0 % Eosinophils (%) (Auto) 0.9 0.0-7.0 % Basophils (%) (Auto) 0.3 0.0-2.0 % Neutrophils # (Auto) 6.3 1.6-8.6 10 ^3/uL Lymphocytes # (Auto) 1.3 0.4-5.4 10 ^3/uL Monocytes # (Auto) 0.4 0-1.3 10 ^3/uL Eosinophils # (Auto) 0.1 0-0.8 10 ^3/uL Basophils # (Auto) 0 0-0.2 10 ^3/uL Nucleated Red Blood Cells 0.3 % Platelet Estimate Decreased Hypochromasia (manual) Marked Poikilocytosis (manual) Slight Anisocytosis (manual) Slight Microcytosis Marked Ovalocytes Few Schistocytes Few Sodium Level 140 136-145 mmol/L Potassium Level 3.9 3.5-5.1 mmol/L Chloride Level 102 98-107 mmol/L Carbon Dioxide Level 30 20-31 mmol/L Anion Gap 8 5-15 Blood Urea Nitrogen 8 L 9-23 mg/dL Creatinine 0.94 0.700-1.30 mg/dL Glomerular Filtration Rate Calc 85 >90 mL/min BUN/Creatinine Ratio 8.5 L 10.0-20.0 Serum Glucose 106 74-106 mg/dL Calcium Level 8.4 L 8.7-10.4 mg/dL Total Bilirubin 1.4 H 0.2-1.0 mg/dL Aspartate Amino Transferase (AST) 58 H 13-40 U/L Alanine Aminotransferase (ALT) 13 7-40 U/L Alkaline Phosphatase 63 46-116 U/L Total Protein 6.9 5.7-8.2 g/dL Albumin 4.4 3.2-4.8 g/dL Lipase 28 12-53 U/L Current Medications Medications (Trade) Dose Ordered Sig/Tamir Route Start Time Stop Time Status Last Admin Ondansetron HCl (Zofran) 4 mg ONCE ONCE IV 03/16/25 11:45 03/16/25 11:46 DC 03/16/25 13:16 Pantoprazole Sodium (Protonix) 40 mg ONCE ONCE IV 03/16/25 11:45 03/16/25 11:46 DC 03/16/25 13:16 Procedure: US GALLBLADDER Impression: Limited evaluation due to patient's body habitus. Cholelithiasis without evidence of acute cholecystitis. Limited evaluation of the liver due to overlying bowel gas. 5.1 cm hepatic cysts. The patient is chemistry panel is within normal limits The patient was given Protonix 40 mg IV push The patient was also given Zofran 4 mg IV push for the nausea The CBC shows a hemoglobin of 9.1 and hematocrit of 32.3 indicating significant anemia The rest of the CBC is within normal limits At this time, the patient is being admitted to the hospitalist Images Reviewed?: Images reviewed and evaluated by me Time of 1ST Reevaluation: 11:47 Reevaluation 1ST: Unchanged Patient Education/Counseling: Diagnosis, Treatment, Prognosis Family Education/Counseling: No Family Present SEPSIS Sepsis Screen Date sepsis recognized/suspect: Mar 16, 2025 Time Sepsis recognized/suspect: 1106 Recent Procedure: No On Antibiotic Therapy: No Respiratory Rate >20: Yes Heart Rate >90: No Temp<36 C (96.8 F) or >38.3 C: No SBP <90 or MAP <65 mmHG: No New Acute Mental Status Change: No Is the patient on CPAP, BIPAP,: No Physician Orders Urinalysis (03/16/25 11:37) Heplock Iv (03/16/25 11:37) [place] Man (03/16/25 11:37) Blood Pressure (03/16/25 11:37) Pulse Oximetry (03/16/25 11:37) Gallbladder (03/16/25 11:39) Vital Signs Date Time Temp Pulse Resp B/P (MAP) Pulse Ox O2 Delivery O2 Flow Rate FiO2 03/16/25 11:27 98.1 78 21 143/83 (103) 93 98.1 Laboratory Tests Test 03/16/25 11:49 White Blood Count 8.1 10^3/uL (4.4-10.8) Medications Medications Dose Ordered Sig/Tamir Route Start Time Stop Time Status Last Admin Dose Admin Ondansetron HCl 4 mg ONCE ONCE IV 03/16/25 11:45 03/16/25 11:46 DC 03/16/25 13:16 Pantoprazole Sodium 40 mg ONCE ONCE IV 03/16/25 11:45 03/16/25 11:46 DC 03/16/25 13:16 Departure 1 Departure Time of Disposition: 14:07 Impression: Primary Impression: Intractable abdominal pain Additional Impression: Cholelithiasis Qualified Codes: K80.20 - Calculus of gallbladder without cholecystitis without obstruction Disposition: 09 ADMITTED INPATIENT Admit to: Med Surg Condition: Fair Critical Care Note Critical Care Time?: No Stability Stability form required: Yes Unstable for transfer: ED Physician Assesment (Clinical assesment) I personally scribed for JORGE A BERTRAND MD ([email or web address]) on 7/7/25 at 11:47. Electronically submitted by Emily Moe ([facility]). I personally scribed for JORGE A BERTRAND MD ([email or web address]) on 03/16/25 at 13:06. Electronically submitted by Emily Moe ([facility]). JORGE A BERTRAND MD Mar 16, 2025 11:47
[2025-03-16 12:18] LABS: Hemoglobin 9.1 g/dL (13.5-17.5)
[2025-03-16 12:20] LABS: Hematocrit 32.3 % (41.0-53.0); Mean Corpuscular Hemoglobin 14.6 pg (28.0-32.0); Mean Corpuscular Volume 51.5 fL (80.0-100.0); Nucleated Red Blood Cells % 0.3 %
[2025-03-16 12:35] LABS: Alanine Aminotransferase 13 U/L (7-40); Albumin 4.4 g/dL (3.2-4.8); Alkaline Phosphatase 63 U/L (46-116); Anion Gap 8 (5-15); BUN/Creatinine Ratio 8.5 (10.0-20.0); Carbon Dioxide 30 mmol/L (20-31); Chloride 102 mmol/L (98-107); Lipase 28 U/L (12-53); Potassium 3.9 mmol/L (3.5-5.1); Sodium 140 mmol/L (136-145); Total Protein 6.9 g/dL (5.7-8.2)
[2025-03-16 12:37] LABS: Bilirubin, Total 1.4 mg/dL (0.2-1.0); Blood Urea Nitrogen 8 mg/dL (9-23); Calcium 8.4 mg/dL (8.7-10.4); Glucose 106 mg/dL (74-106)
--- NOTE | 2025-03-16 13:03 | DVH ---
Procedure: US GALLBLADDER Study Date and Requested Time: 03/16/2025 12:24 PM History: pain Comparison: CT abdomen and pelvis 03/14/2025 Technique: Multiple high resolution juarez-scale images obtained of the right upper quadrant of the abd omen with color Doppler for evaluation of blood flow and vascularity as indicated. Findings: Liver normal in size, measuring 14.8 cm in length, with the left hepatic lobe obscured by bowel gas. The visualized liver demonstrates homogenous echotexture and normal contours. 5.1 x 3.9 x 3.6 cm ane choic right hepatic lobe lesion No evidence of intrahepatic or extrahepatic ductal dilatation. Commo n bile duct measures 0.5 cm in diameter. Cholelithiasis without evidence of gallbladder wall thickening or pericholecystic free fluid Negative sonographic Gresham's sign. Pancreas obscured by bowel gas. Right kidney measures 11.32 cm in length, with normal contours, echotexture, and cortical thickness. No evidence of hydronephrosis, calculi, cystic or solid renal lesions. Partially visualized inferior vena cava unremarkable. Impression: Limited evaluation due to patient's body habitus. Cholelithiasis without evidence of acute cholecystitis. Limited evaluation of the liver due to overlying bowel gas. 5.1 cm hepatic cysts.
[2025-03-16] MEDS: PANTOPRAZOLE 40 MG/10 ML VIAL INJ IV ONE (13:16)
[2025-03-16] MEDS: ONDANSETRON HCL 4 MG/2 ML VIAL IV ONE (13:16)
[2025-03-16 13:20] LABS: Anisocytosis Slight; Ovalocytes FEW
[2025-03-16] MEDS ORDERED: ONDANSETRON HCL 4 MG/2 ML VIAL IV PRN (14:15)
[2025-03-16] MEDS ORDERED: MORPHINE SULFATE INJ 2 MG/ml SYRG IV PRN (14:15)
[2025-03-16] MEDS ORDERED: hydrALAZINE HCL 20 MG/ML VL IV PRN ×2 (14:15→14:30)
[2025-03-16] MEDS ORDERED: PIPERACILLIN-TAZOB 3.375GM 100 ML IV SCH (14:15)
[2025-03-16] MEDS ORDERED: NITROGLYCERIN 0.4 MG SL TAB SL PRN ×2 (14:15→14:30)
[2025-03-16 15:21] LABS: INR 1.09 (0.9-1.15); Prothrombin Time 11.5 sec (9.3-11.8)
[2025-03-16] MEDS: SODIUM CHLORIDE 0.9% 1,000 ML IV SCH (15:29)
[2025-03-16] MEDS: PIPERACILLIN-TAZOB 3.375GM 100 ML IV ONE (15:32)
[2025-03-16 15:53] LABS: Urine Amorphous Crystal FEW /hpf (None Seen); Urine Protein, UAD TRACE (Negative)
--- NOTE | 2025-03-16 16:07 | DVH ---
INDICATION: preop, pain TECHNIQUE: Frontal view of the chest. COMPARISON: XY CHEST PORTABLE on DOS: 03/14/25, XY CHEST PORTABLE on DOS: 04/02/24 FINDINGS: . The heart and mediastinal contours are grossly unremarkable. There is no evidence of pleural disea se. The lungs are clear. The bony structures of the chest are intact without fracture. IMPRESSION: 1. No evidence of acute disease.
[2025-03-16] MEDS: ONDANSETRON HCL 4 MG/2 ML VIAL IV PRN (21:27)
[2025-03-17] VITALS (8 sets, daily range): BP systolic 123–150; BP diastolic 66–75; PULSE 69–97; RESP 12–20; TEMP 97.5–98; O2SAT 92–99
[2025-03-17] MEDS: PIPERACILLIN-TAZOB 3.375GM 100 ML IV SCH
[2025-03-17 06:43] LABS: Hemoglobin 9.2 g/dL (13.5-17.5)
[2025-03-17 06:50] LABS: Hematocrit 32.2 % (41.0-53.0); Mean Corpuscular Hemoglobin 15.0 pg (28.0-32.0); Mean Corpuscular Volume 52.7 fL (80.0-100.0); Nucleated Red Blood Cells % 0.1 %
[2025-03-17 07:04] LABS: Alanine Aminotransferase 9 U/L (7-40); Albumin 4.4 g/dL (3.2-4.8); Alkaline Phosphatase 64 U/L (46-116); Anion Gap 10 (5-15); BUN/Creatinine Ratio 11.5 (10.0-20.0); Bilirubin, Total 1.6 mg/dL (0.2-1.0); Blood Urea Nitrogen 12 mg/dL (9-23); Calcium 8.6 mg/dL (8.7-10.4); Carbon Dioxide 30 mmol/L (20-31); Chloride 102 mmol/L (98-107); Glucose 103 mg/dL (74-106); Potassium 3.6 mmol/L (3.5-5.1); Sodium 142 mmol/L (136-145); Total Protein 6.6 g/dL (5.7-8.2)
--- NOTE | 2025-03-17 07:32 | DVHHP2 ---
Admitting Diagnosis: abd pain, nausea History of Present Illness HPI 74 M who comes to ER for abd pain and nausea. He had US Abd done which showed gallstones. Patients states he has been dealing with this issue on and off and he was seen in the ER recently sent home however his pain worsened so he came back to ER. HE will be admitted for surgery eval and supportive care. Home Meds Active Scripts Amoxicillin & Pot Clavulanate (AUGMENTIN TABLET) 875 Mg Tb, 875 MG PO BID for 7 Days, #14 TAB Prov:BRENDA CHAVEZ MD 03/14/25 Ondansetron Odt 4MG Tab (ZOFRAN PO) 4 Mg Tb, 4 MG PO TIDPRN PRN, #40 TAB ODT TAB-DISSOLVE IN MOUTH, THEN SWALLOW Prov:BRENDA CHAVEZ MD 03/14/25 Furosemide (Lasix) 20 Mg Tb, 1 TAB PO DAILY for 30 Days, #30 TAB 1 Refill Prov:AKIN PATEL MD 04/02/24 Past Medical History Cardiac: HTN Patient Family History: Patient reports no known family medical history. Review of Systems Constitutional: No symptom reported Pulmonary/Respiratory: No symptom reported Gastrointestinal: Nausea Genitourinary: No symptom reported Musculoskeletal: No symptom reported Psychiatric: No symptom reported H&P Exam Vital Signs Vital Signs Date Time Temp Pulse Resp B/P (MAP) Pulse Ox O2 Delivery O2 Flow Rate FiO2 03/17/25 05:00 97.8 70 19 143/75 (97) 96 97.8 03/17/25 03:58 Room Air* 0 21 General Appeara: Well developed Pulmonary/Respiratory: Normal inspection Cardiovascular/Chest: Normal inspection, Regular rate Labs/Xrays Labs Test 03/17/25 05:28 03/16/25 14:58 03/16/25 13:26 03/16/25 11:49 Range/Units Sodium Level 142 136-145 mmol/L Potassium Level 3.6 3.5-5.1 mmol/L Chloride Level 102 98-107 mmol/L Carbon Dioxide Level 30 20-31 mmol/L Anion Gap 10 5-15 Blood Urea Nitrogen 12 9-23 mg/dL Creatinine 1.04 0.700-1.30 mg/dL Glomerular Filtration Rate Calc 75 >90 mL/min BUN/Creatinine Ratio 11.5 10.0-20.0 Serum Glucose 103 74-106 mg/dL Calcium Level 8.6 L 8.7-10.4 mg/dL Total Bilirubin 1.6 H 0.2-1.0 mg/dL Aspartate Amino Transferase (AST) 19 13-40 U/L Alanine Aminotransferase (ALT) 9 7-40 U/L Alkaline Phosphatase 64 46-116 U/L Total Protein 6.6 5.7-8.2 g/dL Albumin 4.4 3.2-4.8 g/dL Prothrombin Time 11.5 9.3-11.8 sec Prothrombin Time INR 1.09 0.9-1.15 Urine Color Light-orange Yellow Urine Clarity Turbid H Clear Urine pH 8.5 5.0-9.0 Urine Specific [place] 1.020 1.001-1.035 Urine Protein Trace H Negative Urine Ketones Negative Negative Urine Blood Negative Negative /uL Urine Nitrite Negative Negative Urine Bilirubin Negative Negative Urine Urobilinogen Normal Negative mg/dL Urine Leukocyte Esterase 1+ Negative /uL Urine RBC 7 0 - 3 /hpf Urine Microscopic WBC 12 H 0-3 /HPF Urine Squamous Epithelial Cells Few <5 /hpf Urine Amorphous Crystals Few None Seen /hpf Urine Bacteria Few H None Seen /hpf Urine Glucose Normal Normal mg/dL Eosinophils (%) (Auto) 0.9 0.0-7.0 % Eosinophils # (Auto) 0.1 0-0.8 10 ^3/uL Basophils # (Auto) 0 0-0.2 10 ^3/uL Nucleated Red Blood Cells 0.3 % Platelet Estimate Decreased Hypochromasia (manual) Marked Poikilocytosis (manual) Slight Anisocytosis (manual) Slight Microcytosis Marked Ovalocytes Few Schistocytes Few Lipase 28 12-53 U/L Assessment/Plan Primary Diagnosis 1) Symptomatic cholelithiasis 2) HTN plan; admit tele, NPO, IV ABx, IV antiemetics,, surgery consult, hydration, pain control, daily labs, will follow along medically Plan discussed with: Other (n) BRENDA CHAVEZ MD Mar 17, 2025 07:32
[2025-03-17 08:34] LABS: Anisocytosis Slight
[2025-03-17] MEDS: MORPHINE SULFATE INJ 2 MG/ml SYRG IV PRN ×2 (09:52→20:05)
--- NOTE | 2025-03-17 11:07 | DVHINCON2 ---
Date Seen: Mar 17, 2025 Referring Physician MD Kelly Reason for Consultation Cardiac risk stratification History of Present Illness This is a pleasant Tuvaluan-speaking mostly male who presented to the emergency room with a chief complaint of abdominal pain for three days. The patient pres ented with complaints of abdominal pain associated with nausea, vomiting, and some diarrhea. He has been diagnosed with cholelithiasis with surgical team requesting cardiac risk stratification prior to surgical intervention. Denies chest pain, palpitations, diaphoresis, SOB, dizziness, or syncopal events. He underwent a 12 lead electrocardiogram revealing normal sinus rhythm without evidence of ST-T wave changes suggestive of ischemia. Denies prior history for cardiovascular disease. States he is very active and able to ambulate without assistance on daily basis. Denies exertional shortness of breath or exertional angina. 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 Past Medical History Past medical history reviewed. No other significant than mentioned above. Past Surgical History Hernia repair, 2022 Unspecified tumor removal two left-sided abdomen, 2022 Family History: Patient reports no known family medical history. Family History Family history reviewed. Not significant for cardiovascular disease. Social History Denies the use of illicit drugs, alcohol, or tobacco use. Quit tobacco use over 20 years ago. Allergies: Coded Allergies: NO KNOWN ALLERGIES (Unverified , 04/14/16) Home Meds Active Scripts Amoxicillin & Pot Clavulanate (AUGMENTIN TABLET) 875 Mg Tb, 875 MG PO BID for 7 Days, #14 TAB Prov:BRENDA CHAVEZ MD 03/14/25 Ondansetron Odt 4MG Tab (ZOFRAN PO) 4 Mg Tb, 4 MG PO TIDPRN PRN, #40 TAB ODT TAB-DISSOLVE IN MOUTH, THEN SWALLOW Prov:BRENDA CHAVEZ MD 03/14/25 Furosemide (Lasix) 20 Mg Tb, 1 TAB PO DAILY for 30 Days, #30 TAB 1 Refill Prov:AKIN PATEL MD 04/02/24 Home Meds Home medications reviewed. Current Medications Current Medications Medications (Trade) Dose Ordered Sig/Tamir Route PRN Reason Start Time Stop Time Status Last Admin Nitroglycerin (Ntrostat Sublingual) 0.4 mg Q5MINP PRN SL FOR CHEST PAIN 03/16/25 14:15 03/16/25 14:27 DC Morphine Sulfate 2 mg Q30M PRN IV FOR CHEST PAIN 03/16/25 14:15 03/16/25 14:27 DC Piperacillin Sod/ Tazobactam Sod 100 ml @ 100 mls/hr Q6H IV 03/16/25 14:15 03/16/25 14:27 DC Ondansetron HCl (Zofran) 4 mg Q4HPRN PRN IV n/v 03/16/25 14:15 03/16/25 14:27 DC Hydralazine HCl (Apresoline Injection) 10 mg Q6HR PRN IV sbp >160 03/16/25 14:15 03/16/25 14:27 DC Morphine Sulfate 2 mg Q30M PRN IV FOR CHEST PAIN 03/16/25 14:30 03/17/25 09:52 Ondansetron HCl (Zofran) 4 mg Q4HPRN PRN IV n/v 03/16/25 14:30 03/16/25 21:27 Piperacillin Sod/ Tazobactam Sod 100 ml @ 25 mls/hr Q8H IV 03/17/25 00:00 03/17/25 09:52 Nitroglycerin (Ntrostat Sublingual) 0.4 mg Q5MINP PRN SL FOR CHEST PAIN 03/16/25 14:30 Hydralazine HCl (Apresoline Injection) 10 mg Q6HR PRN IV sbp >160 03/16/25 14:30 Sodium Chloride 1,000 ml @ 50 mls/hr Q20H IV 03/16/25 15:15 03/16/25 15:29 Morphine Sulfate 2 mg Q4HP PRN IV pain 03/16/25 15:15 Review of Systems Constitutional: No symptom reported Ears, Nose, & Throat: No symptom reported Eyes: No symptom reported Neurological: No symptoms reported Pulmonary/Respiratory: No symptom reported Cardiovascular: No symptom reported Gastrointestinal: Abdominal pain, N/V/D Genitourinary: No symptom reported Musculoskeletal: No symptom reported Skin: No symptom reported Psychiatric: No symptom reported Endocrine: No symptom reported Hemotologic/Lymphatic: No symptom reported Vital Signs Vital Signs Date Time Temp Pulse Resp B/P (MAP) Pulse Ox O2 Delivery O2 Flow Rate FiO2 03/17/25 09:52 74 18 144/74 03/17/25 05:00 97.8 96 97.8 03/17/25 03:58 Room Air* 0 21 Physical Exam General Appearance: Cooperative. Well developed. Well nourished. In no acute distress Head Exam: Normal inspection Neck Exam: Normal inspection. Non-tender. Normal alignment Pulmonary/Respiratory: Chest non-tender. Clear bilateral breath sounds Cardiovascular/Chest: Regular rate and rhythm. S1, S2. NSR. No murmurs. No JVD. Peripheral Pulses: 2+ Radial (R). 2+ Radial (L). 2+ Pedal (R). 2+ Pedal (L) Abdominal Exam: Normal bowel sounds. Soft. Tender Ankle Exam: Negative ankle edema Lower extremities: Negative lower extremity edema Neuro/Mental Status: A&O x4. Coherent Thoughts/Psych: Normal thought pattern. Appropriate mood and affect. Good judgement and insight Appearance: In no acute distress Skin Exam: Normal inspection. Normal color. Warm. Dry Labs/Diagnostic Data Labs Test 03/17/25 05:28 03/16/25 14:58 03/16/25 13:26 03/16/25 11:49 Range/Units White Blood Count 5.7 # 4.4-10.8 10^3/uL Red Blood Count 6.10 H 4.5-5.90 10^6/uL Hemoglobin 9.2 L 13.5-17.5 g/dL Hematocrit 32.2 L 41.0-53.0 % Mean Corpuscular Volume 52.7 L 80.0-100.0 fL Mean Corpuscular Hemoglobin 15.0 L 28.0-32.0 pg Mean Corpuscular Hemoglobin Concent 28.4 L 32.0-36.0 g/dL Red Cell Distribution Width 23.3 H 11.8-14.3 % Platelet Count 98 L 140-450 10^3/uL Mean Platelet Volume 10.3 6.9-10.8 fL Neutrophils (%) (Auto) 69.6 37.0-80.0 % Lymphocytes (%) (Auto) 16.5 10.0-50.0 % Monocytes (%) (Auto) 7.1 0.0-12.0 % Eosinophils (%) (Auto) 6.7 0.0-7.0 % Basophils (%) (Auto) 0.1 0.0-2.0 % Neutrophils # (Auto) 4.0 1.6-8.6 10 ^3/uL Lymphocytes # (Auto) 0.9 0.4-5.4 10 ^3/uL Monocytes # (Auto) 0.4 0-1.3 10 ^3/uL Eosinophils # (Auto) 0.4 0-0.8 10 ^3/uL Basophils # (Auto) 0 0-0.2 10 ^3/uL Nucleated Red Blood Cells 0.1 % Platelet Estimate Decreased Hypochromasia (manual) Marked Anisocytosis (manual) Slight Microcytosis Marked Sodium Level 142 136-145 mmol/L Potassium Level 3.6 3.5-5.1 mmol/L Chloride Level 102 98-107 mmol/L Carbon Dioxide Level 30 20-31 mmol/L Anion Gap 10 5-15 Blood Urea Nitrogen 12 9-23 mg/dL Creatinine 1.04 0.700-1.30 mg/dL Glomerular Filtration Rate Calc 75 >90 mL/min BUN/Creatinine Ratio 11.5 10.0-20.0 Serum Glucose 103 74-106 mg/dL Calcium Level 8.6 L 8.7-10.4 mg/dL Total Bilirubin 1.6 H 0.2-1.0 mg/dL Aspartate Amino Transferase (AST) 19 13-40 U/L Alanine Aminotransferase (ALT) 9 7-40 U/L Alkaline Phosphatase 64 46-116 U/L Total Protein 6.6 5.7-8.2 g/dL Albumin 4.4 3.2-4.8 g/dL Prothrombin Time 11.5 9.3-11.8 sec Prothrombin Time INR 1.09 0.9-1.15 Urine Color Light-orange Yellow Urine Clarity Turbid H Clear Urine pH 8.5 5.0-9.0 Urine Specific [place] 1.020 1.001-1.035 Urine Protein Trace H Negative Urine Ketones Negative Negative Urine Blood Negative Negative /uL Urine Nitrite Negative Negative Urine Bilirubin Negative Negative Urine Urobilinogen Normal Negative mg/dL Urine Leukocyte Esterase 1+ Negative /uL Urine RBC 7 0 - 3 /hpf Urine Microscopic WBC 12 H 0-3 /HPF Urine Squamous Epithelial Cells Few <5 /hpf Urine Amorphous Crystals Few None Seen /hpf Urine Bacteria Few H None Seen /hpf Urine Glucose Normal Normal mg/dL Poikilocytosis (manual) Slight Ovalocytes Few Schistocytes Few Lipase 28 12-53 U/L Assessment Preprocedural cardiovascular examination Acute cholelithiasis Post herpetic neuralgia Hx tobacco use Obesity Plan/Recommendation (Dr. Nettles) Revised cardiac risk index (Donald criteria): 0.5% risk of , CA or cardiac arrest. Patient has no underlying history of congestive heart failure, coronary artery disease, and has an optimal functional capacity. Per Cardiology standpoint, the patient is at an acceptable-risk for moderate-risk surgery. There is no additional cardiac workup indicated prior to surgery. Thank you for allowing us to care for this patient. Please call with any questions or concerns. This medical document was created using an electronic medical record system with voice recognition software and computerized dictation system. Although this document has been carefully reviewed, there might still be some phonetic and typographical errors. Occasional wrong-word or ``sound-alike substitutions may have occurred due to the inherent limitations of voice recognition software. These areas are purely typographical due to imperfections of the software programs and do not reflect any compromise in the patient's medical care. Please read the chart carefully and recognize, using context, where these substitutions have occurred. Plan discussed with: Patient, Other NYHA Physical activity limitations: NA Date of Service: Mar 17, 2025 Billing Provider: VINEET TOMLINSON Cardiology Common Codes: 06202-SVMMMTZ INP/OBS CARE (High) VINEET TOMLINSON Mar 17, 2025 11:07
[2025-03-17] MEDS: SUCCINYLCHOLINE CHLORIDE 20 MG/ML 10ML VIAL IV ONE (11:29)
[2025-03-17] MEDS ORDERED: fentaNYL CITRATE 100 MCG/2 ML VL ONE (11:30)
[2025-03-17] MEDS ORDERED: HYDROmorphone HCL 2 MG/ML VL/or syr ONE (11:30)
[2025-03-17] MEDS ORDERED: PROPOFOL 10 MG/ML 20 ML IV ONE (11:30)
--- NOTE | 2025-03-17 11:33 | DVHINCON2 ---
Date of service: Mar 17, 2025 Family History: Patient reports no known family medical history. Allergies: Coded Allergies: NO KNOWN ALLERGIES (Unverified , 04/14/16) Home Meds Active Scripts Amoxicillin & Pot Clavulanate (AUGMENTIN TABLET) 875 Mg Tb, 875 MG PO BID for 7 Days, #14 TAB Prov:BRENDA CHAVEZ MD 03/14/25 Ondansetron Odt 4MG Tab (ZOFRAN PO) 4 Mg Tb, 4 MG PO TIDPRN PRN, #40 TAB ODT TAB-DISSOLVE IN MOUTH, THEN SWALLOW Prov:BRENDA CHAVEZ MD 03/14/25 Furosemide (Lasix) 20 Mg Tb, 1 TAB PO DAILY for 30 Days, #30 TAB 1 Refill Prov:AKIN PATEL MD 04/02/24 Current Medications Current Medications Medications (Trade) Dose Ordered Sig/Tamir Route PRN Reason Start Time Stop Time Status Last Admin Nitroglycerin (Ntrostat Sublingual) 0.4 mg Q5MINP PRN SL FOR CHEST PAIN 03/16/25 14:15 03/16/25 14:27 DC Morphine Sulfate 2 mg Q30M PRN IV FOR CHEST PAIN 03/16/25 14:15 03/16/25 14:27 DC Piperacillin Sod/ Tazobactam Sod 100 ml @ 100 mls/hr Q6H IV 03/16/25 14:15 03/16/25 14:27 DC Ondansetron HCl (Zofran) 4 mg Q4HPRN PRN IV n/v 03/16/25 14:15 03/16/25 14:27 DC Hydralazine HCl (Apresoline Injection) 10 mg Q6HR PRN IV sbp >160 03/16/25 14:15 03/16/25 14:27 DC Morphine Sulfate 2 mg Q30M PRN IV FOR CHEST PAIN 03/16/25 14:30 03/17/25 09:52 Ondansetron HCl (Zofran) 4 mg Q4HPRN PRN IV n/v 03/16/25 14:30 03/16/25 21:27 Piperacillin Sod/ Tazobactam Sod 100 ml @ 25 mls/hr Q8H IV 03/17/25 00:00 03/17/25 09:52 Nitroglycerin (Ntrostat Sublingual) 0.4 mg Q5MINP PRN SL FOR CHEST PAIN 03/16/25 14:30 Hydralazine HCl (Apresoline Injection) 10 mg Q6HR PRN IV sbp >160 03/16/25 14:30 Sodium Chloride 1,000 ml @ 50 mls/hr Q20H IV 03/16/25 15:15 03/16/25 15:29 Morphine Sulfate 2 mg Q4HP PRN IV pain 03/16/25 15:15 Vital Signs Vital Signs Date Time Temp Pulse Resp B/P (MAP) Pulse Ox O2 Delivery O2 Flow Rate FiO2 03/17/25 09:52 74 18 144/74 03/17/25 05:00 97.8 96 97.8 03/17/25 03:58 Room Air* 0 21 Labs/Diagnostic Data Labs Test 03/17/25 05:28 03/16/25 14:58 03/16/25 13:26 03/16/25 11:49 Range/Units White Blood Count 5.7 # 4.4-10.8 10^3/uL Red Blood Count 6.10 H 4.5-5.90 10^6/uL Hemoglobin 9.2 L 13.5-17.5 g/dL Hematocrit 32.2 L 41.0-53.0 % Mean Corpuscular Volume 52.7 L 80.0-100.0 fL Mean Corpuscular Hemoglobin 15.0 L 28.0-32.0 pg Mean Corpuscular Hemoglobin Concent 28.4 L 32.0-36.0 g/dL Red Cell Distribution Width 23.3 H 11.8-14.3 % Platelet Count 98 L 140-450 10^3/uL Mean Platelet Volume 10.3 6.9-10.8 fL Neutrophils (%) (Auto) 69.6 37.0-80.0 % Lymphocytes (%) (Auto) 16.5 10.0-50.0 % Monocytes (%) (Auto) 7.1 0.0-12.0 % Eosinophils (%) (Auto) 6.7 0.0-7.0 % Basophils (%) (Auto) 0.1 0.0-2.0 % Neutrophils # (Auto) 4.0 1.6-8.6 10 ^3/uL Lymphocytes # (Auto) 0.9 0.4-5.4 10 ^3/uL Monocytes # (Auto) 0.4 0-1.3 10 ^3/uL Eosinophils # (Auto) 0.4 0-0.8 10 ^3/uL Basophils # (Auto) 0 0-0.2 10 ^3/uL Nucleated Red Blood Cells 0.1 % Platelet Estimate Decreased Hypochromasia (manual) Marked Anisocytosis (manual) Slight Microcytosis Marked Sodium Level 142 136-145 mmol/L Potassium Level 3.6 3.5-5.1 mmol/L Chloride Level 102 98-107 mmol/L Carbon Dioxide Level 30 20-31 mmol/L Anion Gap 10 5-15 Blood Urea Nitrogen 12 9-23 mg/dL Creatinine 1.04 0.700-1.30 mg/dL Glomerular Filtration Rate Calc 75 >90 mL/min BUN/Creatinine Ratio 11.5 10.0-20.0 Serum Glucose 103 74-106 mg/dL Calcium Level 8.6 L 8.7-10.4 mg/dL Total Bilirubin 1.6 H 0.2-1.0 mg/dL Aspartate Amino Transferase (AST) 19 13-40 U/L Alanine Aminotransferase (ALT) 9 7-40 U/L Alkaline Phosphatase 64 46-116 U/L Total Protein 6.6 5.7-8.2 g/dL Albumin 4.4 3.2-4.8 g/dL Prothrombin Time 11.5 9.3-11.8 sec Prothrombin Time INR 1.09 0.9-1.15 Urine Color Light-orange Yellow Urine Clarity Turbid H Clear Urine pH 8.5 5.0-9.0 Urine Specific [place] 1.020 1.001-1.035 Urine Protein Trace H Negative Urine Ketones Negative Negative Urine Blood Negative Negative /uL Urine Nitrite Negative Negative Urine Bilirubin Negative Negative Urine Urobilinogen Normal Negative mg/dL Urine Leukocyte Esterase 1+ Negative /uL Urine RBC 7 0 - 3 /hpf Urine Microscopic WBC 12 H 0-3 /HPF Urine Squamous Epithelial Cells Few <5 /hpf Urine Amorphous Crystals Few None Seen /hpf Urine Bacteria Few H None Seen /hpf Urine Glucose Normal Normal mg/dL Poikilocytosis (manual) Slight Ovalocytes Few Schistocytes Few Lipase 28 12-53 U/L Assessment 74 year old male with prior history of "tumor removed from left side of abdomen","hernia repair. Has no history of heart disease, is non smoker, non drinker, no illicit drug use, has no allergies. abdomen soft and not distended, periumbilical scar, no tenderness. His history of post prandial upper abdominal pain, nausea and fatty food intolerance is consistent with biliary colic and chronic cholecystitis. Laparoscopic possibly open cholecystectomy, risks and possible complications explained in detail explained to patient that prior abdominal operation may preclude safe conduct of laparoscopic approach. Plan discussed with: Patient KELECHI SHANKS MD Mar 17, 2025 11:33
[2025-03-17] MEDS: ceFAZolin 2 GM/D5W50ml 50 ML IV ONE (12:50)
[2025-03-17] MEDS: LIDOCAINE W/ EPINEPHRINE 1% 20ML VIAL ONE (12:55)
[2025-03-17] MEDS: BUPIVACAINE 0.5% P/F INJ 10 ML VIAL ONE (12:55)
[2025-03-17] MEDS ORDERED: ONDANSETRON HCL 4 MG/2 ML VIAL ONE (13:03)
[2025-03-17] MEDS ORDERED: hydrALAZINE HCL 20 MG/ML VL ONE (13:11)
[2025-03-17] MEDS ORDERED: SUGAMMADEX 200mg/2ml Vial (100MG/ML) IV ONE (13:17)
[2025-03-17] MEDS: D5W/SOD CHL 0.45%/KCL 20MEQ 1,000 ML IV SCH (13:45)
[2025-03-17] MEDS: ONDANSETRON HCL 4 MG/2 ML VIAL IV ONE (13:45)
[2025-03-17] MEDS ORDERED: hydrALAZINE HCL 20 MG/ML VL IV PRN (13:45)
--- NOTE | 2025-03-17 13:59 | DVHOP ---
DATE OF SURGERY: 03/17/2025 PREOPERATIVE DIAGNOSES: Cholelithiasis, cholecystitis. POSTOPERATIVE DIAGNOSES: Cholelithiasis, cholecystitis. SURGEON: Dwayne Mendoza MD TREE CUTTER: Rory Alanis. ANESTHESIA: General endotracheal. ANESTHESIOLOGIST: Dr. James. PROCEDURE: Laparoscopy, laparoscopic cholecystectomy. DESCRIPTION OF PROCEDURE: Under general endotracheal anesthesia with the patient's skin prepped and draped, a supraumbilical incision was made and the incision was carried through the fascia through the preexisting scar. The undersurface of the rectus muscle was palpated and swept clean off adhesions. Subsequently, a 10 mm trocar port was inserted through this incision through which a 0-degree viewing laparoscope was inserted and under direct vision, additional 5 mm ports were inserted through the subxiphoid skin in the midline and through the right anterior axillary line in the right flank. Instrumentation was introduced and laparoscopy was accomplished visualizing no obvious unexpected pathology. The pelvis was occupied by omental adhesions secondary to previous operation. The patient's gallbladder was affected by chronic cholecystitis. It was placed on tension and dissected into the portal triad. The patient's cystic duct was skeletonized, circumferentially dissected, and traced into the hepatocystic triangle so as to minimize the potential for inadvertent injury to the common bile duct. Subsequently, the cystic artery was similarly circumferentially dissected, skeletonized, and traced into the junction with the hepatic artery. Both structures were then divided between metallic clips close to the gallbladder so as to minimize the potential for inadvertent injury to the common bile duct. Following division of the cystic duct and cystic artery, the gallbladder was resected from its liver bed by electrocautery and traction and the fully mobilized gallbladder was then removed from the peritoneal cavity through the 10 mm port site in the supraumbilical skin. The patient's right upper quadrant was meticulously inspected for hemostasis. Hemostasis was found to be complete in the cholecystectomy site as well as the port sites. There was no evidence of bleeding or evidence of bile leakage from the areas inspected. The right upper quadrant was profusely irrigated. Irrigant was aspirated. A 10 mm Salbador-Vyas drain was placed into the right subhepatic space and exteriorized through the 5 mm port site in the right flank and secured with a 2-0 nylon suture. Following instrumentation withdrawal and desufflation of the abdomen, the fascia was closed using 0 Vicryl and wounds approximated using Monocryl sutures, Dermabond glue, and Steri-Strips. The patient remained in stable condition throughout the procedure and left the operating room following an accurate needle and sponge count. MD RORY Combs/MIKE TID: [id number] RECEIPT: [id number]
[2025-03-17] MEDS: ACETAMINOPHEN IV 1000 MG/100ML (10MG/ML) IV PRN (14:09)
[2025-03-17] MEDS: HYDROmorphone HCL 2 MG/ML VL/or syr IV PRN (14:28)
[2025-03-17 14:29] LABS: Hemoglobin 9.7 g/dL (13.5-17.5); Mean Corpuscular Volume 52.8 fL (80.0-100.0); Nucleated Red Blood Cells % 0.3 %
[2025-03-17 14:31] LABS: Hematocrit 34.2 % (41.0-53.0); Mean Corpuscular Hemoglobin 15.0 pg (28.0-32.0)
--- NOTE | 2025-03-17 23:01 | DVHINCON2 ---
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 The patient presented with complaints of abdominal pain associated with nausea, vomiting, and some diarrhea. He has been diagnosed with cholelithiasis with surgical team requesting cardiac risk stratification prior to surgical intervention. Denies chest pain, palpitations, diaphoresis, SOB, dizziness, or syncopal events. He underwent a 12 lead electrocardiogram revealing normal sinus rhythm without evidence of ST-T wave changes suggestive of ischemia. Denies prior history for cardiovascular disease. States he is very active and able to ambulate without assistance on daily basis. Denies exertional shortness of breath or exertional angina. Past Medical History Past medical history reviewed. No other significant than mentioned above. Past Surgical History Past medical history reviewed. No other significant than mentioned above. Family History: Patient reports no known family medical history. Allergies: Coded Allergies: NO KNOWN ALLERGIES (Unverified , 04/14/16) Home Meds Active Scripts Amoxicillin & Pot Clavulanate (AUGMENTIN TABLET) 875 Mg Tb, 875 MG PO BID for 7 Days, #14 TAB Prov:BRENDA CHAVEZ MD 03/14/25 Ondansetron Odt 4MG Tab (ZOFRAN PO) 4 Mg Tb, 4 MG PO TIDPRN PRN, #40 TAB ODT TAB-DISSOLVE IN MOUTH, THEN SWALLOW Prov:BRENDA CHAVEZ MD 03/14/25 Furosemide (Lasix) 20 Mg Tb, 1 TAB PO DAILY for 30 Days, #30 TAB 1 Refill Prov:AKIN PATEL MD 04/02/24 Current Medications Current Medications Medications (Trade) Dose Ordered Sig/Tamir Route PRN Reason Start Time Stop Time Status Last Admin Piperacillin Sod/ Tazobactam Sod 100 ml @ 25 mls/hr Q8H IV 03/17/25 00:00 03/17/25 16:03 Potassium Chloride/Dextrose/ Sod Cl 1,000 ml @ 120 mls/hr Q8H20M IV 03/17/25 13:45 03/17/25 16:36 Acetaminophen (Ofirmev) 1,000 mg [id number] PRN IV PAIN SCALE 1-3 OR TEMP>100.4 03/17/25 13:45 03/17/25 13:57 DC 03/17/25 14:09 Hydralazine HCl (Apresoline Injection) 5 mg Q10M PRN IV SBP>160 03/17/25 13:45 03/17/25 14:36 DC Hydromorphone HCl (Dilaudid Injection) 0.5 mg Q10M PRN IV SEVERE PAIN (7-10 PAIN SCALE) 03/17/25 13:45 03/17/25 14:26 DC 03/17/25 14:50 Review of Systems Constitutional: No symptom reported Ears, Nose, & Throat: No symptom reported Eyes: No symptom reported Neurological: No symptoms reported Pulmonary/Respiratory: No symptom reported Cardiovascular: No symptom reported Gastrointestinal: Abdominal pain, N/V/D Genitourinary: No symptom reported Musculoskeletal: No symptom reported Skin: No symptom reported Psychiatric: No symptom reported Endocrine: No symptom reported Hemotologic/Lymphatic: No symptom reported Vital Signs Vital Signs Date Time Temp Pulse Resp B/P (MAP) Pulse Ox O2 Delivery O2 Flow Rate FiO2 03/17/25 21:00 98.0 91 20 128/72 (90) 94 98.0 03/17/25 13:36 Nasal Cannula 5.0 03/17/25 08:00 24 Physical Exam GENERAL: Alert and oriented x 3. No acute distress. Obese. EYES: PERRL, EOMI. Anicteric. HENT: Moist mucous membranes. LUNGS: Clear to auscultation bilaterally. CARDIOVASCULAR: Regular rate and rhythm. ABDOMEN: Soft, non-tender and non-distended. EXTREMITIES: No edema. NEUROLOGIC: No focal neurological deficits. SKIN: Warm, dry. Labs/Diagnostic Data Labs Test 03/17/25 14:15 03/17/25 05:28 03/16/25 14:58 03/16/25 13:26 Range/Units White Blood Count 10.0 # 4.4-10.8 10^3/uL Red Blood Count 6.47 H 4.5-5.90 10^6/uL Hemoglobin 9.7 L 13.5-17.5 g/dL Hematocrit 34.2 L 41.0-53.0 % Mean Corpuscular Volume 52.8 L 80.0-100.0 fL Mean Corpuscular Hemoglobin 15.0 L 28.0-32.0 pg Mean Corpuscular Hemoglobin Concent 28.4 L 32.0-36.0 g/dL Red Cell Distribution Width 23.1 H 11.8-14.3 % Platelet Count 99 L 140-450 10^3/uL Mean Platelet Volume 10.7 6.9-10.8 fL Neutrophils (%) (Auto) 81.9 H 37.0-80.0 % Lymphocytes (%) (Auto) 11.9 10.0-50.0 % Monocytes (%) (Auto) 3.1 0.0-12.0 % Eosinophils (%) (Auto) 3.0 0.0-7.0 % Basophils (%) (Auto) 0.1 0.0-2.0 % Neutrophils # (Auto) 8.2 1.6-8.6 10 ^3/uL Lymphocytes # (Auto) 1.2 0.4-5.4 10 ^3/uL Monocytes # (Auto) 0.3 0-1.3 10 ^3/uL Eosinophils # (Auto) 0.3 0-0.8 10 ^3/uL Basophils # (Auto) 0 0-0.2 10 ^3/uL Nucleated Red Blood Cells 0.3 % Platelet Estimate Decreased Hypochromasia (manual) Marked Anisocytosis (manual) Slight Microcytosis Marked Sodium Level 142 136-145 mmol/L Potassium Level 3.6 3.5-5.1 mmol/L Chloride Level 102 98-107 mmol/L Carbon Dioxide Level 30 20-31 mmol/L Anion Gap 10 5-15 Blood Urea Nitrogen 12 9-23 mg/dL Creatinine 1.04 0.700-1.30 mg/dL Glomerular Filtration Rate Calc 75 >90 mL/min BUN/Creatinine Ratio 11.5 10.0-20.0 Serum Glucose 103 74-106 mg/dL Calcium Level 8.6 L 8.7-10.4 mg/dL Total Bilirubin 1.6 H 0.2-1.0 mg/dL Aspartate Amino Transferase (AST) 19 13-40 U/L Alanine Aminotransferase (ALT) 9 7-40 U/L Alkaline Phosphatase 64 46-116 U/L Total Protein 6.6 5.7-8.2 g/dL Albumin 4.4 3.2-4.8 g/dL Prothrombin Time 11.5 9.3-11.8 sec Prothrombin Time INR 1.09 0.9-1.15 Urine Color Light-orange Yellow Urine Clarity Turbid H Clear Urine pH 8.5 5.0-9.0 Urine Specific [place] 1.020 1.001-1.035 Urine Protein Trace H Negative Urine Ketones Negative Negative Urine Blood Negative Negative /uL Urine Nitrite Negative Negative Urine Bilirubin Negative Negative Urine Urobilinogen Normal Negative mg/dL Urine Leukocyte Esterase 1+ Negative /uL Urine RBC 7 0 - 3 /hpf Urine Microscopic WBC 12 H 0-3 /HPF Urine Squamous Epithelial Cells Few <5 /hpf Urine Amorphous Crystals Few None Seen /hpf Urine Bacteria Few H None Seen /hpf Urine Glucose Normal Normal mg/dL Test 03/16/25 11:49 Range/Units Poikilocytosis (manual) Slight Ovalocytes Few Schistocytes Few Lipase 28 12-53 U/L Microbiology Date/Time Source Procedure Growth Status 03/17/25 06:55 Nose MRSA Screen - Final Complete 03/16/25 15:00 Blood Blood Culture - Preliminary NO GROWTH AFTER 24 HOURS OF INCUBATION. Resulted Assessment Preprocedural cardiovascular examination. Acute cholelithiasis. Post herpetic neuralgia. History of tobacco use. Obesity. Plan/Recommendation I agree with your ongoing assessment and care of plan. Patient has been seen by Karis Irene NP on my behalf. We have discussed the plan with the patient. Telemetry reviewed. Revised cardiac risk index (Donald criteria): 0.5% risk of , CA or cardiac arrest. Patient has no underlying history of congestive heart failure, coronary artery disease, and has an optimal functional capacity. Per Cardiology standpoint, the patient is at an acceptable-risk for moderate- risk surgery. There is no additional cardiac workup indicated prior to surgery. Additional plan as per the hospital course. Plan discussed with: Patient NYHA Physical activity limitations: NA Date of Service: Mar 17, 2025 Billing Provider: DENIS GUZMAN MD Cardiology Common Codes: [id number] INP/OBS CARE (High) DENIS GUZMAN MD Mar 17, 2025 23:01
[2025-03-18 01:00] VITALS: BP 109/61; PULSE 85; RESP 20; TEMP 97.9; O2SAT 95
[2025-03-18 05:00] VITALS: BP 126/83; PULSE 86; RESP 20; TEMP 98.1; O2SAT 97
[2025-03-18 06:07] LABS: Hemoglobin 9.2 g/dL (13.5-17.5); Nucleated Red Blood Cells % 0.1 %
[2025-03-18 06:08] LABS: Hematocrit 32.7 % (41.0-53.0); Mean Corpuscular Hemoglobin 14.7 pg (28.0-32.0); Mean Corpuscular Volume 52.5 fL (80.0-100.0)
[2025-03-18 06:15] LABS: Albumin 4.4 g/dL (3.2-4.8); Alkaline Phosphatase 65 U/L (46-116); Anion Gap 9 (5-15); BUN/Creatinine Ratio 10.8 (10.0-20.0); Blood Urea Nitrogen 10 mg/dL (9-23); Carbon Dioxide 28 mmol/L (20-31); Chloride 102 mmol/L (98-107); Potassium 4.2 mmol/L (3.5-5.1); Sodium 139 mmol/L (136-145); Total Protein 6.8 g/dL (5.7-8.2)
[2025-03-18 06:16] LABS: Alanine Aminotransferase 43 U/L (7-40); Bilirubin, Total 1.5 mg/dL (0.2-1.0); Calcium 8.6 mg/dL (8.7-10.4); Glucose 118 mg/dL (74-106)
[2025-03-18 06:55] LABS: Anisocytosis Slight; Ovalocytes MODERATE
[2025-03-18 06:56] LABS: Polychromasia Slight
[2025-03-18 08:00] VITALS: PULSE 73; PULSE 76; RESP 18; O2SAT 97
--- NOTE | 2025-03-18 08:00 | DVHDS2 ---
New Physician D'charge PN Admitting Diagnosis Admitting Diagnosis gallstones Discharge Diagnosis cholelithiasis/chronic cholecystitis s/p lap roni Operations or Procedures lap roni Reason(s) For Hospitalization Surgery Hospital Course 74 M who came to ER for abd pain and nausea after meals. His US and CT imaging revealed gallstones and since he was symptomatic he was admitted. Patient was cleared for surgery by cardiology and surgery saw and evaluated him and he underwent lap roni on 03/17/2025. His diet has been advanced to regular diet and if he tolerates his diet he is cleared for discharge home by general surgery with outpt follow up in the clinic. His CBC this AM is nml and chem panel shows preserved renal function. [facility] to arrange for all outpt follow up and patient to dc home once tolerating his diet. Treatment Plan Discharge Condition of Discharge Good Disposition Home Discharge Instructions Diet: Cardiac 2g Na,low cholest Activity: No Restrictions, As Tolerated Medications: see med sheet Follow Up Care Follow Up/Referral: pcp surgery Discharge Statement: "Patient was advised to return to the ER or call 911 if any headaches, dizziness, shortness of breath, chest pain, abdominal pain, bleeding, fevers, or worsening of medical condition. Patient was counseled about treatment plan, medications, possible side effects, patientverbalized understanding. All questions were answered to the best of my ability. This discharge took greater then 30 minutes in planning, reviewing documentation, counseling the patient, and discussing with other team members." BRENDA CHAVEZ MD Mar 18, 2025 08:00
[2025-03-18 09:00] VITALS: BP 130/74; PULSE 78; RESP 18; TEMP 98.5; O2SAT 94
--- NOTE | 2025-03-18 12:42 | DVHPN2 ---
Progress Note Date Seen: Mar 18, 2025 Medical Necessity Reason Pt with a Central, PICC or Fol: No Objective vital signs Vital Sign Date Time Temp Pulse Resp B/P (MAP) Pulse Ox O2 Delivery O2 Flow Rate FiO2 03/18/25 12:05 78 18 128/71 03/18/25 08:00 97 Nasal Cannula* 1 24 03/18/25 05:00 98.1 98.1 Total Intake and Output 03/17/25 03/17/25 03/18/25 15:00 23:00 07:00 Intake Total 150 ml 340 ml 320 ml Output Total 30 ml 30 ml 100 ml Balance 120 ml 310 ml 220 ml medications Current Medications Medications Dose Ordered Sig/Tamir Route Start Time Stop Time Status Last Admin Dose Admin Morphine Sulfate 2 mg Q30M PRN IV 03/16/25 14:30 03/18/25 10:00 2 MG Ondansetron HCl 4 mg Q4HPRN PRN IV 03/16/25 14:30 03/18/25 09:52 4 MG Piperacillin Sod/ Tazobactam Sod 100 ml @ 25 mls/hr Q8H IV 03/17/25 00:00 03/18/25 09:59 25 MLS/HR Nitroglycerin 0.4 mg Q5MINP PRN SL 03/16/25 14:30 Hydralazine HCl 10 mg Q6HR PRN IV 03/16/25 14:30 Sodium Chloride 1,000 ml @ 50 mls/hr Q20H IV 03/16/25 15:15 Hold 03/16/25 15:29 50 MLS/HR Morphine Sulfate 2 mg Q4HP PRN IV 03/16/25 15:15 03/17/25 20:05 2 MG Potassium Chloride/Dextrose/ Sod Cl 1,000 ml @ 120 mls/hr Q8H20M IV 03/17/25 13:45 03/17/25 16:36 120 MLS/HR laboratory and microbiology Laboratory Tests 03/18/25 05:21 Test 03/18/25 05:21 Range/Units Serum Glucose 118 H 74-106 mg/dL Problem List/Assessment/Plan Problem List/Assessment/Plan 03/18/25 patient feels much better than before operation, no nausea, no vomiting, abdomen non distended, appropriately tender, drainage non bilious, labs, reviewed, bilirubin lower than before operation, he can advance to regular diet and if chaitanya may be discharged, to return to see me in two weeks, nurse to teach care of drain. Plan discussed with: Patient Dietary Evaluation Review Comments: Pt is nauseaed d/t gallstone-cholelithiasis, his sympatoms will subside after surgery. Reassess after surgery PRN. Expected Outcomes/Goals: normal GI function KELECHI SHANKS MD Mar 18, 2025 12:42
[2025-03-18 13:00] VITALS: BP 120/69; PULSE 79; RESP 18; TEMP 97.5; O2SAT 94
[2025-03-18 14:07] VITALS: BP 128/78; PULSE 72; RESP 18
[2025-03-18] MEDS ORDERED: TRAM50TA2 PO (15:32)
--- NOTE | 2025-03-18 23:16 | DVHPN2 ---
Progress Note - Dictate Date Seen: Mar 18, 2025 Medical Necessity Reason Pt with a Central, PICC or Fol: No Subjective Patient was seen and evaluated in follow up. Patient is s/p laparoscopy, laparoscopic cholecystectomy. Patient tolerated procedure well. Patient is cardiac stable for discharge. Telemetry reviewed. vital signs Vital Sign Date Time Temp Pulse Resp B/P (MAP) Pulse Ox O2 Delivery O2 Flow Rate FiO2 03/18/25 14:07 72 18 128/78 03/18/25 13:00 97.5 94 97.5 03/18/25 08:00 Nasal Cannula* 1 24 Total Intake and Output 03/17/25 03/17/25 03/18/25 15:00 23:00 07:00 Intake Total 150 ml 340 ml 320 ml Output Total 30 ml 30 ml 100 ml Balance 120 ml 310 ml 220 ml objective GENERAL: Alert and oriented x 3. No acute distress. Obese. EYES: PERRL, EOMI. Anicteric. HENT: Moist mucous membranes. LUNGS: Clear to auscultation bilaterally. CARDIOVASCULAR: Regular rate and rhythm. ABDOMEN: Soft, non-tender and non-distended. EXTREMITIES: No edema. NEUROLOGIC: No focal neurological deficits. SKIN: Warm, dry. laboratory and microbiology Laboratory Tests 03/18/25 05:21 Test 03/18/25 05:21 Range/Units Serum Glucose 118 H 74-106 mg/dL Problem List Preprocedural cardiovascular examination. Acute cholelithiasis. Post herpetic neuralgia. History of tobacco use. Obesity. Assessment/Plan Continued all current supportive medical care. IV antibiotics as ordered. IV Hydralazine for SB > 160. Nitro SL. Morphine for pain management. Additional plan as per the hospital course. Dietary Evaluation Review Comments: Pt is nauseaed d/t gallstone-cholelithiasis, his sympatoms will subside after surgery. Reassess after surgery PRN. Expected Outcomes/Goals: normal GI function Plan discussed with: Patient DENIS GUZMNA MD Mar 18, 2025 16:50
--- NOTE | 2025-03-23 07:37 | ECG ---
[facility] Test Date: 2025-03-17 Test Time: 11:15:40 Pat Name: DEMETRI STEPHENS Department: Respiratoy Room: [address] [place] [address] 7 Gender: M Coordinator Of Placement: : 1950 Requested By: VINEET TOMLINSON Order Number: [id number] Reading MD: Ayden Cabral Measurements Intervals [place] Rate: 67 P: 44 DC: 56 QRS: 50 QRSD: 107 T: 24 QT: 449 QTc: 474 Interpretive Statements Sinus rhythm Short DC interval Electronically Signed On 03-23-2025 13:22:53 PDT by Ayden Cabral Please click the below link to view image of tracing.
== END 2025-03-18 16:15 | disposition home or self-care (01) | DRG 418 ==
LOC: ER 11:05 → OVERFLOW 14:15 → ER 14:23 → TELE-EAST 03-17 03:13
PROVIDERS: ADMIT Internal Medicine; ATTEND Internal Medicine
PROC: 0FT44ZZ Resection of Gallbladder, Percutaneous Endoscopic Approach (ICD-10-PCS; principal; 2025-03-17 12:38)
DX: K80.10 Calculus of gallbladder with chronic cholecystitis without obstruction (principal); B02.29 Other postherpetic nervous system involvement; I10 Essential (primary) hypertension; K66.0 Peritoneal adhesions (postprocedural) (postinfection); E66.9 Obesity, unspecified; Z87.891 Personal history of nicotine dependence; Z79.2 Long term (current) use of antibiotics; Z79.899 Other long term (current) drug therapy; Z87.442 Personal history of urinary calculi; Z68.29 Body mass index [BMI] 29.0-29.9, adult
CPT/HCPCS: 36415; 71045; 76705; 80053; 81001; 82247; 83690; 85025; 85610; 86850; 86900; 86901; 87040; 87081; 93005; 96374; 96375; G0378; J0131; J0330; J1100; J2405; J2470; J2543; J2704; J3490

== ENCOUNTER 2025-08-06 05:28 | Emergency (ER) | payer BC, MEDICAID ==
[~2025-08-06] VITALS: Ht 165.1 cm; Wt 81.8 kg
[~2025-08-06 05:28] MED LIST changes: +TRAM50TA2 PO
[2025-08-06] MEDS: SODIUM CHLORIDE 0.9% 1,000 ML IV ONE (06:46)
[2025-08-06] MEDS: ONDANSETRON HCL 4 MG/2 ML VIAL IV ONE (06:48)
[2025-08-06] MEDS: FAMOTIDINE (10MG/ML) 2ML VL IV ONE (06:48)
[2025-08-06 07:03] LABS: Hematocrit 35.0 % (41.0-53.0); Hemoglobin 10.3 g/dL (13.5-17.5); Mean Corpuscular Hemoglobin 16.0 pg (28.0-32.0); Mean Corpuscular Volume 54.4 fL (80.0-100.0); Nucleated Red Blood Cells % 0.1 %
--- NOTE | 2025-08-06 07:11 | ED.PDOC ---
GI ASSESSMENT HPI Comments A 75 YEAR OLD MALE PRESENTS TO THE ED WITH COMPLAINT OF N/V AND MIDDLE ABDOMINAL PAIN. PATIENT STATES HE HAD A FISH 2 DAYS AGO AND BEGAN TO EXPERIENCE MIDDLE ABDOMINAL PAIN WITH NAUSEA AND VOMITING SHORTLY AFTER. PATIENT REPORTS HE IS STILL EXPERIENCING THESE SYMPTOMS, PROMPTING HIM TO COME TO THE ED TODAY FOR EVALUATION. PATIENT DENIES DYSURIA, HEMATURIA, FLANK PAIN, FEVER, CHILLS, SHORTNESS OF BREATH, CHEST PAIN, HEADACHE, OR OTHER COMPLAINTS. NO OTHER SYMPTOMS OR MODIFYING FACTORS AT THIS TIME. PATIENT IS ALERT, ORIENTED X 4, AND HAS STEADY GAIT. Chief Complaint: Nausea/Vomiting Time Seen by MD: 06:24 Primary Care Provider: UNKNOWN Reviewed Notes: Nurses Notes, Medications, Allergies Allergies: Coded Allergies: NO KNOWN ALLERGIES (Unverified , 04/14/16) Home Meds Active Scripts Amoxicillin & Pot Clavulanate (AUGMENTIN TABLET) 875 Mg Tb, 875 MG PO BID for 7 Days, #14 TAB Prov:BRENDA CHAVEZ MD 03/14/25 Ondansetron Odt 4MG Tab (ZOFRAN PO) 4 Mg Tb, 4 MG PO TIDPRN PRN, #40 TAB ODT TAB-DISSOLVE IN MOUTH, THEN SWALLOW Prov:BRENDA CHAVEZ MD 03/14/25 Furosemide (Lasix) 20 Mg Tb, 1 TAB PO DAILY for 30 Days, #30 TAB 1 Refill Prov:AKIN PATEL MD 04/02/24 Reported Medications Tramadol Hcl (Tramadol Hcl) 50 Mg Tab, 50 MG PO Q6HP PRN for PAIN SCALE 7 THRU 10 for 14 Days, #14 MG 03/18/25 Information Source: Patient, Relative (Child) Mode of Arrival: Ambulatory Timing: Days Duration: Since onset, Days Prehospital treatment: None Quality: Aching, Cramping Vomitus: Food Particles Stool: Normal Severity: Moderate Recent: None Recent Hx of: None Pain Location: Other (MIDDLE ABDOMEN) Modifying Factors: Nothing Associated sign and symptoms: Nausea, Vomiting, Abdominal Pain Past Medical History PAST MEDICAL HISTORY: HTN, Kidney Stones Past Medical History (Other): PARKINSON'S DISEASE HIATAL HERNIA Surgical History: Hernia Repair Family History Family History: Reviewed,noncontributory to illness Social History Smoker: Non-Smoker Alcohol: Denies ETOH Use Drugs: Denies Drug Use Lives In: Home Constitutional: denies: chills, diaphoresis, fatigue, fever, malaise, sweats, weakness, others EENTM: denies: blurred vision, double vision, ear bleeding, ear discharge, ear drainage, ear pain, ear ringing, eye pain, eye redness, hearing loss, mouth pain, mouth swelling, nasal discharge, nose bleeding, nose congestion, nose pain, photophobia, tearing, throat pain, throat swelling, voice changes, others Respiratory: denies: cough, hemoptysis, orthopnea, SOB at rest, shortness of breath, SOB with excertion, stridor, wheezing, others Cardiovascular: denies: chest pain, dizzy spells, diaphoresis, Dyspnea on exertion, edema, irregular heart beat, left arm pain, lightheadedness, palpitations, PND, syncope, others Gastrointestinal: reports: abdominal pain, nausea, vomiting; denies: abdomen distended, blood streaked bowels, constipated, diarrhea, dysphagia, difficulty swallowing, hematemesis, melena, poor appetite, poor fluid intake, rectal bleeding, rectal pain, others Genitourinary: denies: burning, dysuria, flank pain, frequency, hematuria, incontinence, penile discharge, penile sore, pain, testicle pain, testicle swelling, urgency, others Neurological: denies: dizziness, fainting, headache, left sided numbness, left sided weakness, numbness, paresthesia, pre-existing deficit, right sided numbness, right sided weakness, seizure, speech problems, tingling, tremors, weakness, others Musculoskeletal: denies: back pain, gout, joint pain, joint swelling, muscle pain, muscle stiffness, neck pain, others Integumetry: denies: bruises, change in color, change in hair/nails, dryness, laceration, lesions, lumps, rash, wounds, others Allergic/Immunocompromised: denies: Difficulty Healing, Frequent Infections, Hives, Itching, others Hematologic/Lymphatic: denies: anemia, blood clots, easy bleeding, easy bruising, swollen glands, others Endocrine: denies: excessive hunger, excessive sweating, excessive thirst, excessive urination, flushing, intolerance to cold, intolerance to heat, unexplained weight gain, unexplained weight loss, others Psychiatric: denies: anxiety, bipolar disorder, depression, hopeless, panic disorder, schizophrenia, sleepless, suicidal, others All Other Systems: Reviewed and Negative Physical Exam General Appearance: No Apparent Distress, Normal HEENT: Normal ENT Inspection, PERRL/EOMI, Pharynx Normal, TMs Normal Neck: Full Range of Motion, Non-Tender, Normal, Normal Inspection Respiratory: Chest Non-Tender, Lungs Clear, No Accessory Muscle Use, No Respiratory Distress, Normal Breath Sounds Cardiovascular: No Edema, No JVD, No Murmur, No Gallop, Normal Peripheral Pulses, Regular Rate/Rhythm Breast Exam: Deferred Gastrointestinal: No Organomegaly, No Pulsatile Mass, Normal Bowel Sounds, Soft, Tenderness (MIDDLE ABD, NO GUARDING AND REBOUND TENDERNESS. 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 ) Musculoskeletal : Apperance: Normal Neurologic: Alert, supervisor cutting department II-XII nml as Tested, No Motor Deficits, Normal Affect, Normal Mood, No Sensory Deficits Cerebellar Function: Normal Reflexes: Normal Skin: Dry, Normal Color, Warm Peripheral Pulses: 2+ carotid (R), 2+ carotid (L) Lymphatic: No Adenopathy Was a procedure done? Was a procedure done?: No GI differential Dx Differential Diagnosis: Appendicitis, Bowel Obstruction, Diverticular disease, Gastritis/PUD, Gastroenteritis, Hernia, UTI, Dehydration, Electrolyte Imbalance, Food Poisoning, Viral, Kidney Stone X-Ray, Labs, Meds, VS Vital Signs Date Time Temp Pulse Resp B/P (MAP) Pulse Ox O2 Delivery O2 Flow Rate FiO2 08/06/25 05:40 97.6 89 20 140/77 93 97.6 Lab Test 08/06/25 06:43 08/06/25 06:30 Range/Units White Blood Count 8.8 4.4-10.8 10^3/uL Red Blood Count 6.43 H 4.5-5.90 10^6/uL Hemoglobin 10.3 L 13.5-17.5 g/dL Hematocrit 35.0 L 41.0-53.0 % Mean Corpuscular Volume 54.4 L 80.0-100.0 fL Mean Corpuscular Hemoglobin 16.0 L 28.0-32.0 pg Mean Corpuscular Hemoglobin Concent 29.5 L 32.0-36.0 g/dL Red Cell Distribution Width 22.7 H 11.8-14.3 % Platelet Count 122 L 140-450 10^3/uL Mean Platelet Volume 10.7 6.9-10.8 fL Neutrophils (%) (Auto) 66.9 37.0-80.0 % Lymphocytes (%) (Auto) 26.4 10.0-50.0 % Monocytes (%) (Auto) 5.8 0.0-12.0 % Eosinophils (%) (Auto) 0.6 0.0-7.0 % Basophils (%) (Auto) 0.3 0.0-2.0 % Neutrophils # (Auto) 5.9 1.6-8.6 10 ^3/uL Lymphocytes # (Auto) 2.3 0.4-5.4 10 ^3/uL Monocytes # (Auto) 0.5 0-1.3 10 ^3/uL Eosinophils # (Auto) 0.1 0-0.8 10 ^3/uL Basophils # (Auto) 0 0-0.2 10 ^3/uL Nucleated Red Blood Cells 0.1 % Sodium Level 139 136-145 mmol/L Potassium Level 3.9 3.5-5.1 mmol/L Chloride Level 103 98-107 mmol/L Carbon Dioxide Level 27 20-31 mmol/L Anion Gap 9 5-15 Blood Urea Nitrogen 13 9-23 mg/dL Creatinine 0.89 0.700-1.30 mg/dL Glomerular Filtration Rate Calc 89 >90 mL/min BUN/Creatinine Ratio 14.6 10.0-20.0 Serum Glucose 110 H 74-106 mg/dL Calcium Level 9.2 8.7-10.4 mg/dL Total Bilirubin 1.4 H 0.2-1.0 mg/dL Aspartate Amino Transferase (AST) 15 13-40 U/L Alanine Aminotransferase (ALT) 11 7-40 U/L Alkaline Phosphatase 71 46-116 U/L Total Protein 7.7 5.7-8.2 g/dL Albumin 4.8 3.2-4.8 g/dL Lipase 30 12-53 U/L Urine Color Yellow Yellow Urine Clarity Clear Clear Urine pH 7.0 5.0-9.0 Urine Specific [place] 1.015 1.001-1.035 Urine Protein Negative Negative Urine Ketones Negative Negative Urine Blood Negative Negative /uL Urine Nitrite Negative Negative Urine Bilirubin Negative Negative Urine Urobilinogen 4 H Negative mg/dL Urine Leukocyte Esterase 3+ Negative /uL Urine RBC 1 0 - 3 /hpf Urine Microscopic WBC 7 H 0-3 /HPF Urine Squamous Epithelial Cells Few <5 /hpf Urine Bacteria None seen None Seen /hpf Urine Mucus Few None Seen Urine Yeast (Budding) Occasional None Seen /hpf Urine Glucose Normal Normal mg/dL Current Medications Medications (Trade) Dose Ordered Sig/Tamir Route Start Time Stop Time Status Last Admin Sodium Chloride 1,000 ml @ 1,000 mls/hr Q1H ONCE IV 08/06/25 06:30 08/06/25 07:29 DC 08/06/25 06:46 Ondansetron HCl (Zofran) 4 mg ONCE ONCE IV 08/06/25 06:30 08/06/25 06:33 DC 08/06/25 06:48 Famotidine (Pepcid Injection) 20 mg ONCE ONCE IV 08/06/25 06:30 08/06/25 06:33 DC 08/06/25 06:48 ORDERING PHYSICIAN: EUGENE VASQUEZ PROCEDURE(s): ABPL - CT AB PEL WO CON-NO ORAL OR IV REASON: MIDDLE ABD PAIN WITH NAUSEA AND VOMITING ORDER NUMBER(s): [id number], ACCESSION NUMBER(s): [id number] COMPUTERIZED TOMOGRAPHY ABDOMEN AND PELVIS WITHOUT CONTRAST REASON FOR EXAM: MIDDLE ABD PAIN WITH NAUSEA AND VOMITING COMPARISON: CT CT AB PEL WO CON-NO ORAL OR IV on DOS: 03/14/25 TECHNIQUE: Spiral scans were acquired from the diaphragm to the symphysis pubis without intravenous contrast administration. 2-D coronal and sagittal reformatted images were provided. Radiation optimization: All CT scans at this facility use at least one of these dose optimization techniques: Automated exposure control mA and/or kV adjustment per patient size (includes targeted exams where dose is matched to clinical indication) or iterative reconstruction. RADIATION DOSE: CTDI: 17.44 mGy DLP: 909.42 mGy-cm FINDINGS: There is a 15 x 7 mm fluid density in the posterior left costophrenic sulcus that is unchanged from the prior study. There is trace linear atelectasis versus scarring in the anterior base of the left lower lobe. There is small pericardial effusion. There is a large hiatal hernia containing the majority of the stomach in the posterior mediastinum. The spleen is mildly enlarged at 15.5 cm in length. The liver is normal in size and contour. There is a 4.5 cm cyst in the right lobe of the liver. Evaluation of the abdominal organs is suboptimal in the absence of intravenous contrast. The gallbladder is surgically absent. Unenhanced appearance of the pancreas is unremarkable. The adrenal glands are normal. The kidneys are similar in size. There is no hydronephrosis of either kidney. No renal, ureteral, or bladder calculus is identified. The urinary bladder is significantly thickened although it is not well distended. There is no abdominal aortic aneurysm. The prostate is massively enlarged. The colonic stool burden is small. The appendix is normal. There is no Pathologic distention of the Small-bowel. No free fluid is identified in the abdomen or pelvis. There is no pathologic lymphadenopathy identified by size criteria. There is partial visualization of fixation hardware in the right upper arm. No acute osseous abnormality is identified. There is old healed fracture of the left 12th rib. IMPRESSION: Large hiatal hernia with the majority of the stomach located in the posterior mediastinum. Aspiration precautions are recommended. No evidence of small-bowel obstruction. Normal appendix. Prior cholecystectomy. Prostatomegaly. Thick-walled urinary bladder, likely secondary to chronic outlet obstruction. Correlate clinically with urinalysis for possible cystitis. Splenomegaly Small pericardial effusion ATED BY: DARNELL JON MD DICTATED DATE/TIME: 08/06/25745 SIGNED BY: DARNELL JON MD SIGNED DATE/TIME: 08/06/25745 CC: X-Ray, Labs, Meds, VS Comment EXTERNAL MEDICAL RECORDS REVIEWED: [NONE] INDEPENDENT HISTORIANS: [NONE] SOCIAL DETERMINANTS OF HEALTH: [NONE] LABS ORDERED: CBC, CMP, UA, LIPASE REVIEWED AND INTERPRETED RESULTS: LEUKO 3+ IMAGING ORDERED: CT ABD/PEL TREATMENTS ORDERED: NS 1 L IV, ZOFRAN 4 MG IV, PEPCID 20 MG IV, ROCEPHIN 1G IV PROCEDURES PERFORMED: NONE CRITICAL CARE TIME: NONE I HAVE DISCUSSED THE PATIENT WITH THE ATTENDING PHYSICIAN DR. LLANES AND HE AGREES WITH THE PATIENT'S PLAN OF CARE AND DISPOSITION. BASED ON HISTORY OF PRESENT ILLNESS, AND PHYSICAL EXAM, PATIENT WILL BE DISCHARGED HOME. DISCUSSED PLAN FOR DISCHARGE HOME WITH RX [CIPRO 500MG AND ZOFRAN 4MG]. MEDICATION WARNINGS GIVEN. SHARED DECISION MAKING: DISCUSSED WITH PATIENT THAT THEIR WORKUP WAS NORMAL. PATIENT INSTRUCTED TO FOLLOW UP WITH PRIMARY CARE PROVIDER IN 1-2 DAYS FOR RE- EVALUATION OF SYMPTOMS. PATIENT VERBALIZES UNDERSTANDING TO RETURN TO ED FOR NEW OR WORSENING SYMPTOMS OR IF FOLLOW UP WITH PCP CANNOT BE OBTAINED. PATIENT FEELS COMFORTABLE GOING HOME AT THIS TIME. ALL QUESTIONS ADDRESSED AT TIME OF DISCHARGE. Images Reviewed?: Images reviewed and evaluated by me Time of 1ST Reevaluation: 08:28 Reevaluation 1ST: Improved Time of 2ND Reevaluation: 09:00 Reevaluation 2ND: Improved Patient Education/Counseling: Diagnosis, Treatment, Need For Follow Up Family Education/Counseling: Diagnosis, Treatment, Need For Follow Up Medical Screening: No EMC Exist At This Time SEPSIS Sepsis Screen Date sepsis recognized/suspect: Aug 06, 2025 Time Sepsis recognized/suspect: 0544 Recent Procedure: Yes On Antibiotic Therapy: No Respiratory Rate >20: No Heart Rate >90: No Temp<36 C (96.8 F) or >38.3 C: No SBP <90 or MAP <65 mmHG: No New Acute Mental Status Change: No Is the patient on CPAP, BIPAP,: No Physician Orders Heplock Iv (08/06/25 ) Ct Ab Pel Wo Con-No Oral Or Iv (08/06/25 06:33) Urine Bacterial Culture (08/06/25 07:32) Vital Signs Date Time Temp Pulse Resp B/P (MAP) Pulse Ox O2 Delivery O2 Flow Rate FiO2 08/06/25 05:40 97.6 89 20 140/77 93 97.6 Laboratory Tests Test 08/06/25 06:43 White Blood Count 8.8 10^3/uL (4.4-10.8) Medications Medications Dose Ordered Sig/Tamir Route Start Time Stop Time Status Last Admin Dose Admin Famotidine 20 mg ONCE ONCE IV 08/06/25 06:30 08/06/25 06:33 DC 08/06/25 06:48 Ondansetron HCl 4 mg ONCE ONCE IV 08/06/25 06:30 08/06/25 06:33 DC 08/06/25 06:48 Sodium Chloride 1,000 ml @ 1,000 mls/hr Q1H ONCE IV 08/06/25 06:30 08/06/25 07:29 DC 08/06/25 06:46 Departure 1 Departure Time of Disposition: 09:00 Impression: Primary Impression: Acute gastritis Qualified Codes: K29.00 - Acute gastritis without bleeding Additional Impressions: Acute UTI (urinary tract infection) Hiatal hernia Disposition: HOME / SELF CARE / HOMELESS Condition: Stable Additional Instructions: FOLLOW-UP WITH PCP IN 1 TO 2 DAYS. TAKE MEDICATIONS PRESCRIBED. RETURN TO ED FOR ANY NEW OR WORSENING SYMPTOMS. e-Prescriptions Ondansetron Odt 4MG Tab (ZOFRAN PO) 4 Mg Tb 4 MG PO BID, #20 TAB ODT TAB-DISSOLVE IN MOUTH, THEN SWALLOW Prov: EUGENE VASQUEZ 08/06/25 Omeprazole (Gnp Omeprazole) 20 Mg Tab 40 MG PO DAILY, #30 TAB Prov: EUGENE VASQUEZ 08/06/25 Ciprofloxacin Hcl (Cipro) 500 Mg Tab 1 TAB PO BID, #20 TAB Prov: EUGENE VASQUEZ 08/06/25 Discharged With: Self, Relative Critical Care Note Critical Care Time?: No Stability Stability form required: No I personally scribed for EUGENE VASQUEZ ([email or web address]) on 08/06/25 at 07:11. Electronically submitted by Baron Barrios ([email or web address]). I personally scribed for EUGENE VASQUEZ ([email or web address]) on 08/06/25 at 07:52. Electronically submitted by Baron Barrios (adQ). I personally scribed for EUGENE VASQUEZ ([email or web address]) on 08/06/25 at 08:00. Electronically submitted by Baron Barrios (adQ). EUGENE VASQUEZ Aug 06, 2025 07:11
[2025-08-06 07:18] LABS: Urine Budding Yeast OCCASIONAL /hpf (None Seen); Urine Protein, UAD Negative (Negative)
[2025-08-06 07:19] LABS: Alanine Aminotransferase 11 U/L (7-40); Alkaline Phosphatase 71 U/L (46-116); Anion Gap 9 (5-15); BUN/Creatinine Ratio 14.6 (10.0-20.0); Blood Urea Nitrogen 13 mg/dL (9-23); Calcium 9.2 mg/dL (8.7-10.4); Carbon Dioxide 27 mmol/L (20-31); Chloride 103 mmol/L (98-107); Lipase 30 U/L (12-53); Potassium 3.9 mmol/L (3.5-5.1); Sodium 139 mmol/L (136-145); Total Protein 7.7 g/dL (5.7-8.2)
[2025-08-06 07:21] LABS: Albumin 4.8 g/dL (3.2-4.8); Bilirubin, Total 1.4 mg/dL (0.2-1.0); Glucose 110 mg/dL (74-106)
--- NOTE | 2025-08-06 07:48 | DVH ---
COMPUTERIZED TOMOGRAPHY ABDOMEN AND PELVIS WITHOUT CONTRAST REASON FOR EXAM: MIDDLE ABD PAIN WITH NAUSEA AND VOMITING COMPARISON: CT CT AB PEL WO CON-NO ORAL OR IV on DOS: 03/14/25 TECHNIQUE: Spiral scans were acquired from the diaphragm to the symphysis pubis without intravenous contrast administration. 2-D coronal and sagittal reformatted images were provided. Radiation optimization: All CT scans at this facility use at least one of these dose optimization techniques: Automated exposure control mA and/or kV adjustment per patient size (includes targeted exams where dose is matched to clinical indication) or iterative reconstruction. RADIATION DOSE: CTDI: 17.44 mGy DLP: 909.42 mGy-cm FINDINGS: There is a 15 x 7 mm fluid density in the posterior left costophrenic sulcus that is unchanged from the prior study. There is trace linear atelectasis versus scarring in the anterior base of the left lower lobe. There is small pericardial effusion. There is a large hiatal hernia containing the majority of the stomach in the posterior mediastinum. The spleen is mildly enlarged at 15.5 cm in length. The liver is normal in size and contour. There is a 4.5 cm cyst in the right lobe of the liver. Evaluation of the abdominal organs is suboptimal in the absence of intravenous contrast. The gallbladder is surgically absent. Unenhanced appearance of the pancreas is unremarkable. The adrenal glands are normal. The kidneys are similar in size. There is no hydronephrosis of either kidney. No renal, ureteral, or bladder calculus is identified. The urinary bladder is significantly thickened although it is not well distended. There is no abdominal aortic aneurysm. The prostate is massively enlarged. The colonic stool burden is small. The appendix is normal. There is no Pathologic distention of the Small-bowel. No free fluid is identified in the abdomen or pelvis. There is no pathologic lymphadenopathy identified by size criteria. There is partial visualization of fixation hardware in the right upper arm. No acute osseous abnormality is identified. There is old healed fracture of the left 12th rib. IMPRESSION: Large hiatal hernia with the majority of the stomach located in the posterior mediastinum. Aspiration precautions are recommended. No evidence of small-bowel obstruction. Normal appendix. Prior cholecystectomy. Prostatomegaly. Thick-walled urinary bladder, likely secondary to chronic outlet obstruction. Correlate clinically with urinalysis for possible cystitis. Splenomegaly Small pericardial effusion
[2025-08-06] MEDS ORDERED: ZOFR4T PO (08:33)
[2025-08-06] MEDS ORDERED: OMEP20TA PO (08:33)
[2025-08-06] MEDS ORDERED: CIPR-173 PO (08:33)
[2025-08-06 09:02] VITALS: BP 140/57; PULSE 85; RESP 19; TEMP 98.2; O2SAT 93
== END 2025-08-06 09:12 | disposition home or self-care (01) ==
LOC: ER 05:28
DX: K29.00 Acute gastritis without bleeding (principal); N39.0 Urinary tract infection, site not specified; K44.9 Diaphragmatic hernia without obstruction or gangrene; I10 Essential (primary) hypertension; Z79.899 Other long term (current) drug therapy; Z90.49 Acquired absence of other specified parts of digestive tract; Z98.890 Other specified postprocedural states
CPT/HCPCS: 36415; 74176; 80053; 81001; 83690; 85025; 87086; 96361; 96365; 96375; 99285; J0696; J2405; J3490; J7030

== ENCOUNTER 2025-08-08 00:33 | Emergency (ER) | payer BC, MEDICAID ==
[~2025-08-08] VITALS: Ht 162.6 cm; Wt 79.7 kg
[~2025-08-08 00:33] MED LIST changes: +CIPR-173 PO; +OMEP20TA PO
--- NOTE | 2025-08-08 01:03 | ED.PDOC ---
GI ASSESSMENT HPI Comments 75-year-old male who came to ER for abdominal pain. Patient has a history of hypertension and Parkinson's disease. Was seen here yesterday for abdominal pain nausea and constipation. Diagnostics done. Sent home with ciprofloxacin and omeprazole. Patient claims to ciprofloxacin and makes him feel nauseated. Has no bowel movements for 3 days Chief Complaint: Abdominal Pain Time Seen by MD: 01:03 Primary Care Provider: UNKNOWN Reviewed Notes: Nurses Notes Allergies: Coded Allergies: NO KNOWN ALLERGIES (Unverified , 04/14/16) Home Meds Active Scripts Polyethylene Glycol 3350 (Miralax) 17 Gm Pow, 17 GM PO BID for 90 Days, #120 POW Prov:ALIRIO EDWARDS MD 08/08/25 Famotidine (PEPCID TABLET) 20 Mg Tb, 1 TAB PO BID PRN, #60 TAB 5 Refills Prov:ALIRIO EDWARDS MD 08/08/25 Ondansetron HCl (Ondansetron Hydrochloride) 8 Mg Tab, 8 MG PO Q6HP PRN, #30 TAB Prov:ALIRIO EDWARDS MD 08/08/25 Ondansetron Odt 4MG Tab (ZOFRAN PO) 4 Mg Tb, 4 MG PO BID, #20 TAB ODT TAB-DISSOLVE IN MOUTH, THEN SWALLOW Prov:EUGENE VASQUEZ 08/06/25 Omeprazole (Gnp Omeprazole) 20 Mg Tab, 40 MG PO DAILY, #30 TAB Prov:EUGENE VASQUEZ 08/06/25 Ciprofloxacin Hcl (Cipro) 500 Mg Tab, 1 TAB PO BID, #20 TAB Prov:EUGENE VASQUEZ 08/06/25 Amoxicillin & Pot Clavulanate (AUGMENTIN TABLET) 875 Mg Tb, 875 MG PO BID for 7 Days, #14 TAB Prov:BRENDA CHAVZE MD 03/14/25 Ondansetron Odt 4MG Tab (ZOFRAN PO) 4 Mg Tb, 4 MG PO TIDPRN PRN, #40 TAB ODT TAB-DISSOLVE IN MOUTH, THEN SWALLOW Prov:BRENDA CHAVEZ MD 03/14/25 Furosemide (Lasix) 20 Mg Tb, 1 TAB PO DAILY for 30 Days, #30 TAB 1 Refill Prov:AKIN PATEL MD 04/02/24 Reported Medications Tramadol Hcl (Tramadol Hcl) 50 Mg Tab, 50 MG PO Q6HP PRN for PAIN SCALE 7 THRU 10 for 14 Days, #14 MG 03/18/25 Information Source: Patient Mode of Arrival: Ambulatory Past Medical History PAST MEDICAL HISTORY: HTN, Kidney Stones Past Medical History (Other): Parkinson's disease Surgical History: Hernia Repair Family History Family History: Reviewed,noncontributory to illness Social History Smoker: Non-Smoker Alcohol: Denies ETOH Use Drugs: Denies Drug Use Lives In: Home Constitutional: denies: chills, diaphoresis, fatigue, fever, malaise, sweats, weakness, others EENTM: denies: blurred vision, double vision, ear bleeding, ear discharge, ear drainage, ear pain, ear ringing, eye pain, eye redness, hearing loss, mouth pain, mouth swelling, nasal discharge, nose bleeding, nose congestion, nose pain, photophobia, tearing, throat pain, throat swelling, voice changes, others Respiratory: denies: cough, hemoptysis, orthopnea, SOB at rest, shortness of breath, SOB with excertion, stridor, wheezing, others Cardiovascular: denies: chest pain, dizzy spells, diaphoresis, Dyspnea on exertion, edema, irregular heart beat, left arm pain, lightheadedness, palpitations, PND, syncope, others Gastrointestinal: reports: abdominal pain, constipated, nausea; denies: abdomen distended, blood streaked bowels, diarrhea, dysphagia, difficulty swallowing, hematemesis, melena, poor appetite, poor fluid intake, rectal bleeding, rectal pain, vomiting, others Genitourinary: denies: burning, dysuria, flank pain, frequency, hematuria, incontinence, penile discharge, penile sore, pain, testicle pain, testicle swelling, urgency, others Neurological: denies: dizziness, fainting, headache, left sided numbness, left sided weakness, numbness, paresthesia, pre-existing deficit, right sided numbness, right sided weakness, seizure, speech problems, tingling, tremors, weakness, others Musculoskeletal: denies: back pain, gout, joint pain, joint swelling, muscle pain, muscle stiffness, neck pain, others Integumetry: denies: bruises, change in color, change in hair/nails, dryness, laceration, lesions, lumps, rash, wounds, others Hematologic/Lymphatic: denies: anemia, blood clots, easy bleeding, easy bruising, swollen glands, others Endocrine: denies: excessive hunger, excessive sweating, excessive thirst, excessive urination, flushing, intolerance to cold, intolerance to heat, unexplained weight gain, unexplained weight loss, others Psychiatric: denies: anxiety, bipolar disorder, depression, hopeless, panic di sorder, schizophrenia, sleepless, suicidal, others Physical Exam General Appearance: No Apparent Distress, Normal HEENT: Normal ENT Inspection, Pharynx Normal, TMs Normal Neck: Full Range of Motion, Non-Tender, Normal, Normal Inspection Respiratory: Chest Non-Tender, Lungs Clear, No Accessory Muscle Use, No Respiratory Distress, Normal Breath Sounds Cardiovascular: No Edema, No JVD, No Murmur, No Gallop, Normal Peripheral Pulses, Regular Rate/Rhythm Breast Exam: Deferred Gastrointestinal: No Organomegaly, Non Tender, No Pulsatile Mass, Normal Bowel Sounds, Soft Genitalia: Deferred Pelvic: Deferred Rectal: Deferred Extremities: No calf tenderness, Normal capillary refill, Normal inspection, Normal range of motion, Non-tender, No pedal edema Musculoskeletal : Apperance: Normal Neurologic: Alert, 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 Was a procedure done?: No GI differential Dx Differential Diagnosis: Bowel Obstruction, Constipation, Gastritis/PUD, Gastroenteritis, Hernia X-Ray, Labs, Meds, VS Vital Signs Date Time Temp Pulse Resp B/P (MAP) Pulse Ox O2 Delivery O2 Flow Rate FiO2 08/08/25 03:36 98.4 81 18 154/72 (99) 95 98.4 08/08/25 01:45 85 18 95 Room Air* 0 21 08/08/25 01:45 98.3 85 19 151/80 (103) 91 98.3 08/08/25 00:35 97.0 84 18 156/83 94 97.0 Lab Test 08/08/25 01:07 Range/Units White Blood Count 8.7 4.4-10.8 10^3/uL Red Blood Count 6.11 H 4.5-5.90 10^6/uL Hemoglobin 10.2 L 13.5-17.5 g/dL Hematocrit 33.1 L 41.0-53.0 % Mean Corpuscular Volume 54.1 L 80.0-100.0 fL Mean Corpuscular Hemoglobin 16.7 L 28.0-32.0 pg Mean Corpuscular Hemoglobin Concent 30.9 L 32.0-36.0 g/dL Red Cell Distribution Width 22.7 H 11.8-14.3 % Platelet Count 111 L 140-450 10^3/uL Mean Platelet Volume 10.6 6.9-10.8 fL Neutrophils (%) (Auto) 69.9 37.0-80.0 % Lymphocytes (%) (Auto) 19.9 10.0-50.0 % Monocytes (%) (Auto) 8.0 0.0-12.0 % Eosinophils (%) (Auto) 1.8 0.0-7.0 % Basophils (%) (Auto) 0.4 0.0-2.0 % Neutrophils # (Auto) 6.1 1.6-8.6 10 ^3/uL Lymphocytes # (Auto) 1.7 0.4-5.4 10 ^3/uL Monocytes # (Auto) 0.7 0-1.3 10 ^3/uL Eosinophils # (Auto) 0.2 0-0.8 10 ^3/uL Basophils # (Auto) 0 0-0.2 10 ^3/uL Nucleated Red Blood Cells 0.2 % Sodium Level 138 136-145 mmol/L Potassium Level 4.0 3.5-5.1 mmol/L Chloride Level 100 98-107 mmol/L Carbon Dioxide Level 28 20-31 mmol/L Anion Gap 10 5-15 Blood Urea Nitrogen 17 9-23 mg/dL Creatinine 1.12 0.700-1.30 mg/dL Glomerular Filtration Rate Calc 68 >90 mL/min BUN/Creatinine Ratio 15.2 10.0-20.0 Serum Glucose 100 74-106 mg/dL Calcium Level 9.4 8.7-10.4 mg/dL Magnesium Level 2.0 1.6-2.6 mg/dL Total Bilirubin 1.3 H 0.2-1.0 mg/dL Aspartate Amino Transferase (AST) 22 13-40 U/L Alanine Aminotransferase (ALT) 19 7-40 U/L Alkaline Phosphatase 74 46-116 U/L Total Protein 7.7 5.7-8.2 g/dL Albumin 4.8 3.2-4.8 g/dL Current Medications Medications (Trade) Dose Ordered Sig/Tamir Route Start Time Stop Time Status Last Admin Sodium Chloride 1,000 ml @ 1,000 mls/hr Q1H ONCE IVB 08/08/25 01:00 08/08/25 01:59 DC 08/08/25 01:35 Ondansetron HCl (Zofran) 4 mg ONCE ONCE IV 08/08/25 01:00 08/08/25 01:01 DC 08/08/25 01:35 Time of 1ST Reevaluation: 01:01 Reevaluation 1ST: Unchanged Patient Education/Counseling: Diagnosis, Treatment Family Education/Counseling: No Family Present SEPSIS Sepsis Screen Date sepsis recognized/suspect: Aug 08, 2025 Time Sepsis recognized/suspect: 37 Recent Procedure: No On Antibiotic Therapy: No Respiratory Rate >20: No Heart Rate >90: No Temp<36 C (96.8 F) or >38.3 C: No SBP <90 or MAP <65 mmHG: No New Acute Mental Status Change: No Is the patient on CPAP, BIPAP,: No Vital Signs Date Time Temp Pulse Resp B/P (MAP) Pulse Ox O2 Delivery O2 Flow Rate FiO2 08/08/25 03:36 98.4 81 18 154/72 (99) 95 98.4 08/08/25 01:45 85 18 95 Room Air* 0 21 08/08/25 01:45 98.3 85 19 151/80 (103) 91 98.3 08/08/25 00:35 97.0 84 18 156/83 94 97.0 Laboratory Tests Test 08/08/25 01:07 White Blood Count 8.7 10^3/uL (4.4-10.8) Departure 1 Departure Time of Disposition: 03:00 Impression: Primary Impression: Hiatal hernia Disposition: 01 HOME / SELF CARE / HOMELESS Condition: Stable e-Prescriptions Polyethylene Glycol 3350 (Miralax) 17 Gm Pow 17 GM PO BID for 90 Days, #120 POW Prov: ALIRIO EDWARDS MD 08/08/25 Famotidine (PEPCID TABLET) 20 Mg Tb 1 TAB PO BID PRN, #60 TAB 5 Refills Prov: ALIRIO EDWARDS MD 08/08/25 Ondansetron HCl (Ondansetron Hydrochloride) 8 Mg Tab 8 MG PO Q6HP PRN, #30 TAB Prov: ALIRIO EDWARDS MD 08/08/25 Discharged With: Self Critical Care Note Critical Care Time?: No Stability Stability form required: No Heart Score Heart Score: Heart Score Response (Comments) Value History N/A 0 EKG N/A 0 Age N/A 0 Risk Factors N/A 0 Troponin N/A 0 Total 0 I personally scribed for ALIRIO EDWARDS MD ([email or web address]) on 08/08/25 at 01:03. Electronically submitted by Skyler Oliveros ([email or web address]). ALIRIO EDWARDS MD Aug 08, 2025 01:03
[2025-08-08 01:23] LABS: Hematocrit 33.1 % (41.0-53.0); Hemoglobin 10.2 g/dL (13.5-17.5); Mean Corpuscular Hemoglobin 16.7 pg (28.0-32.0); Mean Corpuscular Volume 54.1 fL (80.0-100.0); Nucleated Red Blood Cells % 0.2 %
[2025-08-08] MEDS: ONDANSETRON HCL 4 MG/2 ML VIAL IV ONE (01:35)
[2025-08-08] MEDS: SODIUM CHLORIDE 0.9% 1,000 ML IVB ONE (01:35)
[2025-08-08 01:42] LABS: Alanine Aminotransferase 19 U/L (7-40); Albumin 4.8 g/dL (3.2-4.8); Alkaline Phosphatase 74 U/L (46-116); Anion Gap 10 (5-15); BUN/Creatinine Ratio 15.2 (10.0-20.0); Blood Urea Nitrogen 17 mg/dL (9-23); Calcium 9.4 mg/dL (8.7-10.4); Carbon Dioxide 28 mmol/L (20-31); Chloride 100 mmol/L (98-107); Glucose 100 mg/dL (74-106); Potassium 4.0 mmol/L (3.5-5.1); Sodium 138 mmol/L (136-145); Total Protein 7.7 g/dL (5.7-8.2)
[2025-08-08 01:44] LABS: Bilirubin, Total 1.3 mg/dL (0.2-1.0)
[2025-08-08 01:45] VITALS: PULSE 85; RESP 18; O2SAT 95
[2025-08-08 02:05] LABS: Magnesium 2.0 mg/dL (1.6-2.6)
[2025-08-08] MEDS: diphenhydrAMINE HCL 50 MG/1 ML VL ONE (02:16)
[2025-08-08] MEDS ORDERED: FAMO20TA10 PO (03:18)
[2025-08-08] MEDS ORDERED: POLY335015 PO (03:18)
[2025-08-08] MEDS ORDERED: ONDA-180 PO (03:18)
[2025-08-08 03:36] VITALS: BP 154/72; PULSE 81; RESP 18; TEMP 98.4; O2SAT 95
[2025-08-09] MEDS ORDERED: BACDST PO (09:51)
== END 2025-08-08 03:53 | disposition home or self-care (01) ==
LOC: ER 00:33
DX: K44.9 Diaphragmatic hernia without obstruction or gangrene (principal); G20.A1 Parkinson's disease without dyskinesia, without mention of fluctuations; I10 Essential (primary) hypertension
CPT/HCPCS: 36415; 80053; 83735; 85025; 96361; 96374; 99283; J1200; J2405; J7030

== ENCOUNTER 2025-08-09 07:37 | Emergency (ER) | payer BC, MEDICAID ==
[~2025-08-09] VITALS: Ht 165.1 cm; Wt 77.9 kg
[~2025-08-09 07:37] MED LIST changes: +FAMO20TA10 PO; +ONDA-180 PO; +POLY335015 PO
--- NOTE | 2025-08-09 08:15 | ED.PDOC ---
General HPI Comments 75 y/o M, presents to the ED for CC of urinary retention. Patient states, he has been experiencing symptoms of urinary retention with associated suprapubic abdominal pain x4days. Patient reports, that he was seen at [facility] for SS x2 consecutive days and was Dx with acute gastritis and a UTI however, symptoms have not improved. Patient comments, that he was prescribed Ciprofloxacin and has not taken Rx d/t increased nausea. Patient denies fever, chills, hematuria, or scrotal swelling. No other symptoms or modifying factors are present at this time. Chief Complaint: Urinary Time Seen by MD: 08:00 Primary Care Provider: UNKNOWN Reviewed notes: Nurses Notes, Medications, Allergies Allergies: Coded Allergies: NO KNOWN ALLERGIES (Unverified , 04/14/16) Home Meds Active Scripts Polyethylene Glycol 3350 (Miralax) 17 Gm Pow, 17 GM PO BID for 90 Days, #120 POW Prov:ALIRIO EDWARDS MD 08/08/25 Famotidine (PEPCID TABLET) 20 Mg Tb, 1 TAB PO BID PRN, #60 TAB 5 Refills Prov:ALIRIO EDWARDS MD 08/08/25 Ondansetron HCl (Ondansetron Hydrochloride) 8 Mg Tab, 8 MG PO Q6HP PRN, #30 TAB Prov:ALIRIO EDWARDS MD 08/08/25 Ondansetron Odt 4MG Tab (ZOFRAN PO) 4 Mg Tb, 4 MG PO BID, #20 TAB ODT TAB-DISSOLVE IN MOUTH, THEN SWALLOW Prov:EUGENE VASQUEZ 08/06/25 Omeprazole (Gnp Omeprazole) 20 Mg Tab, 40 MG PO DAILY, #30 TAB Prov:EUGENE VASQUEZ 08/06/25 Ciprofloxacin Hcl (Cipro) 500 Mg Tab, 1 TAB PO BID, #20 TAB Prov:EUGENE VASQUEZ 08/06/25 Amoxicillin & Pot Clavulanate (AUGMENTIN TABLET) 875 Mg Tb, 875 MG PO BID for 7 Days, #14 TAB Prov:BRENDA CHAVEZ MD 03/14/25 Ondansetron Odt 4MG Tab (ZOFRAN PO) 4 Mg Tb, 4 MG PO TIDPRN PRN, #40 TAB ODT TAB-DISSOLVE IN MOUTH, THEN SWALLOW Prov:BRENDA CHAVEZ MD 03/14/25 Furosemide (Lasix) 20 Mg Tb, 1 TAB PO DAILY for 30 Days, #30 TAB 1 Refill Prov:AKIN PATEL MD 04/02/24 Reported Medications Tramadol Hcl (Tramadol Hcl) 50 Mg Tab, 50 MG PO Q6HP PRN for PAIN SCALE 7 THRU 10 for 14 Days, #14 MG 03/18/25 Information Source: Patient, Relative (Child) Mode of Arrival: Ambulatory Severity: Moderate Inability to void: Moderate Timing: Days Duration: Since onset Prehospital treatment: None Onset: Spontaneous Symptoms: Dysuria History of: None Location: Suprapubic Penile discharge: None Modifying factors: None associated signs and symptoms: Abdominal Pain, Dysuria Past Medical History PAST MEDICAL HISTORY: HTN, Kidney Stones Surgical History: Hernia Repair Family History Family History: Reviewed,noncontributory to illness Social History Smoker: Non-Smoker Alcohol: Denies ETOH Use Drugs: Denies Drug Use Lives In: Home Constitutional: denies: chills, diaphoresis, fatigue, fever, malaise, sweats, weakness, others EENTM: denies: blurred vision, double vision, ear bleeding, ear discharge, ear drainage, ear pain, ear ringing, eye pain, eye redness, hearing loss, mouth pain, mouth swelling, nasal discharge, nose bleeding, nose congestion, nose pain, photophobia, tearing, throat pain, throat swelling, voice changes, others Respiratory: denies: cough, hemoptysis, orthopnea, SOB at rest, shortness of breath, SOB with excertion, stridor, wheezing, others Cardiovascular: denies: chest pain, dizzy spells, diaphoresis, Dyspnea on exertion, edema, irregular heart beat, left arm pain, lightheadedness, palpitations, PND, syncope, others Gastrointestinal: reports: abdominal pain; denies: abdomen distended, blood streaked bowels, constipated, diarrhea, dysphagia, difficulty swallowing, hematemesis, melena, nausea, poor appetite, poor fluid intake, rectal bleeding, rectal pain, vomiting, others Genitourinary: reports: dysuria; denies: burning, flank pain, frequency, hematuria, incontinence, penile discharge, penile sore, pain, testicle pain, testicle swelling, urgency, others Neurological: denies: dizziness, fainting, headache, left sided numbness, left sided weakness, numbness, paresthesia, pre-existing deficit, right sided numbness, right sided weakness, seizure, speech problems, tingling, tremors, weakness, others Musculoskeletal: denies: back pain, gout, joint pain, joint swelling, muscle pain, muscle stiffness, neck pain, others Integumetry: denies: bruises, change in color, change in hair/nails, dryness, laceration, lesions, lumps, rash, wounds, others Allergic/Immunocompromised: denies: Difficulty Healing, Frequent Infections, Hives, Itching, others Hematologic/Lymphatic: denies: anemia, blood clots, easy bleeding, easy bruising, swollen glands, others Endocrine: denies: excessive hunger, excessive sweating, excessive thirst, excessive urination, flushing, intolerance to cold, intolerance to heat, unexplained weight gain, unexplained weight loss, others Psychiatric: denies: anxiety, bipolar disorder, depression, hopeless, panic disorder, schizophrenia, sleepless, suicidal, others All Other Systems: Reviewed and Negative Physical Exam General Appearance: Moderate Distress HEENT: Normal ENT Inspection, Pharynx Normal, TMs Normal Neck: Full Range of Motion, Non-Tender, Normal, Normal Inspection Respiratory: Chest Non-Tender, Lungs Clear, No Accessory Muscle Use, No Respiratory Distress, Normal Breath Sounds Cardiovascular: No Edema, No JVD, No Murmur, No Gallop, Normal Peripheral Pul ses, Regular Rate/Rhythm Breast Exam: Deferred Gastrointestinal: No Organomegaly, Non Tender, No Pulsatile Mass, Normal Bowel Sounds, Soft Genitalia: Deferred Pelvic: Deferred Rectal: Deferred Extremities: No calf tenderness, Normal capillary refill, Normal inspection, Normal range of motion, Non-tender, No pedal edema Musculoskeletal : Apperance: Normal Neurologic: Alert, 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 Was a procedure done?: No Differential Diagnosis Kidney stone (Female): Musculoskeletal pain, Urinary obstruction, Urolithiasis Urinary Problem (Male): Bladder Obstruction, Urinary Retention, Urolithiasis, UTI X-Ray, Labs, Meds, VS Vital Signs Date Time Temp Pulse Resp B/P (MAP) Pulse Ox O2 Delivery O2 Flow Rate FiO2 08/09/25 07:38 98.9 91 16 157/92 93 98.9 Patient alert. Came in because of urinary symptoms. Vitals stable. Answering questions. Has been seen in this ER every day for the past three days. Nur catheter. Was given prescription of Bactrim. Explained to the patient. Was told to follow up with his primary care physician. Was told to come back if there is any problem. Time of 1ST Reevaluation: 08:30 Reevaluation 1ST: Unchanged Patient Education/Counseling: Diagnosis, Treatment Family Education/Counseling: Diagnosis, Treatment SEPSIS Sepsis Screen Date sepsis recognized/suspect: Aug 09, 2025 Time Sepsis recognized/suspect: 737 Recent Procedure: No On Antibiotic Therapy: No Respiratory Rate >20: No Heart Rate >90: Yes Temp<36 C (96.8 F) or >38.3 C: No SBP <90 or MAP <65 mmHG: No New Acute Mental Status Change: No Is the patient on CPAP, BIPAP,: No Physician Orders Insert Nur Catheter QSHIFT (08/09/25 08:33) Leg Bag (08/09/25 ) Vital Signs Date Time Temp Pulse Resp B/P (MAP) Pulse Ox O2 Delivery O2 Flow Rate FiO2 08/09/25 07:38 98.9 91 16 157/92 93 98.9 Departure 1 Departure Time of Disposition: 09:50 Impression: Primary Impression: Acute UTI (urinary tract infection) Disposition: 01 HOME / SELF CARE / HOMELESS Condition: Good e-Prescriptions Sulfamethoxazole W/Trimethopri (Bactrim Ds Tablet) 1 Tab Tb 1 TAB PO BID for 5 Days, #10 TAB Prov: ANASTASIYA LLANES MD 08/09/25 Discharged With: Self Critical Care Note Critical Care Time?: No Stability Stability form required: No Heart Score Heart Score: Heart Score Response (Comments) Value History N/A 0 EKG N/A 0 Age N/A 0 Risk Factors N/A 0 Troponin N/A 0 Total 0 I personally scribed for ANASTASIYA LLANES MD ([email or web address]) on 08/09/25 at 08:15. Electronically submitted by Kristie Mahoney ([email or web address]). I personally scribed for ANASTASIYA LLANES MD ([email or web address]) on 08/09/25 at 08:33. Electronically submitted by Kristie Mahoney ([email or web address]). I personally scribed for ANASTASIYA LLANES MD ([email or web address]) on 08/09/25 at 08:40. Electronically submitted by Kristie Mahoney ([email or web address]). ANASTASIYA LLANES MD Aug 09, 2025 08:15
[2025-08-09] MEDS ORDERED: BACDST PO (09:51)
[2025-08-09 11:45] VITALS: BP 149/90; PULSE 80; RESP 16; TEMP 98; O2SAT 94
== END 2025-08-09 11:45 | disposition home or self-care (01) ==
LOC: ER 07:37
DX: N39.0 Urinary tract infection, site not specified (principal); I10 Essential (primary) hypertension; Z79.899 Other long term (current) drug therapy; Z98.890 Other specified postprocedural states; Z87.442 Personal history of urinary calculi
CPT/HCPCS: 51702; 99284; A4315